=== PATIENT | male | born 1945 | race Caucasian/White ===

== ENCOUNTER 2016-05-24 10:54 | Inpatient (IN) | payer MEDICARE, MEDICAID ==
[~2016-05-24] VITALS: Ht 175.3 cm; Wt 84.7 kg
[~2016-05-24 10:54] MED LIST changes: -ACCUKIT; -ACET325T PO; -ALBUAER3 INH; -ALPR1TAB3 PO; -AMPI500C8 PO; -BLOOD GLUCOSE T1 TES; -CALG500 PO; -GETGO ROLLING W1 MI1; -GLYC2SUP RECTAL; -HYDR-3534 PO; -HYDR-3580 PO; -HYDR25TA5 PO; -HYDR2TAB PO; -INSU-91; -IPRA0.02 INH; -LABE100T2 PO; -LANTINJ SQ; -LANTUS2P SQ; -LIDO5DIS35 TD; -LISI-519 PO; -LISI10TA3 PO; -METO25TA3 PO; -NEBULIZER1 MI1; -OXYC1TAB35 PO; -POLY17S PO; -TIZA4TAB PO; -VITD400 PO; -ZINC40OI TOPICAL; -ZOFR4TAB PO; -[UNRECOGNIZED DRUG - OTHER]; -[UNRECOGNIZED DRUG - SUPPLY]
[2016-05-24] MEDS ORDERED: POLY17S PO (13:26)
[2016-05-24] MEDS ORDERED: ZOFR4TAB PO (13:26)
[2016-05-24] MEDS ORDERED: GLYC2SUP RECTAL (13:26)
[2016-05-24] MEDS ORDERED: HYDR25TA5 PO (13:26)
[2016-05-24] MEDS ORDERED: HYDR2TAB PO (13:26)
[2016-05-24] MEDS ORDERED: ACET325T PO (13:26)
[2016-05-25] MEDS ORDERED: NEBULIZER1 MI1 (10:16)
[2016-05-27] VITALS (12 sets, daily range): BP systolic 111–162; BP diastolic 53–91; PULSE 59–75; RESP 16–20; TEMP 96.3–98; O2SAT 92–99
[2016-05-27] MEDS: LACTATED RINGER'S 1000 ML IV SCH (06:45)
[2016-05-27] MEDS ORDERED: INSULIN HUMAN REGULAR 1,000 UNITS/10 ML VIAL SQ PRN (06:45)
[2016-05-27] MEDS: SODIUM CHLORID 0.9% 500 ML IV SCH ×2 (06:45→23:25)
[2016-05-27] MEDS ORDERED: METOPROLOL TARTRATE 25 MG TAB PO PRN (06:45)
--- NOTE | 2016-05-27 08:23 | HHI.HP ---
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 Presents to TEVAR. No back pain or chest pain. Past/Family/Social History Past Medical History HTN, CAD, CVOD, tobacco abuse Social History tobacco Home Medications Active Scripts Nebulizer 1 Mis Mis #1 EA .ROUTE DIRECTED Ref 0 Prov:Otto Mendez MD R2 05/25/16 Pravastatin (Pravachol)80 Mg Tab80 Mg PO DAILY #30 TAB Prov:Otto Mendez MD R2 05/22/16 Labetalol 200 Mg Evf522 Mg PO Q12HR #60 TAB Prov:Otto Mendez MD R2 05/22/16 Clopidogrel (Plavix)75 Mg Tab75 Mg PO DAILY 30 Days Prov:Otto Mendez MD R2 05/22/16 Citalopram (Celexa)20 Mg Tab20 Mg PO DAILY #30 TAB Ref 3 Prov:Otto Mendez MD R2 05/22/16 Alprazolam (Xanax)0.5 Mg Tab0.5 Mg PO Q12HR PRN (ANXIETY) #20 TAB Prov:Otto Mendez MD R2 05/22/16 Tiotropium Inh (Spiriva Handihaler)18 Mcg Cap1 Puff INH DAILY #30 CAP Ref 0 1 capsule = 18 mcg Prov:Otto Mendez MD R2 05/22/16 Zolpidem (Ambien)5 Mg Tab5 Mg PO HS PRN (insomnia) #20 TAB Prov:Otto Lin MD 05/15/16 Zinc Oxide (Topical) (Zinc Oxide)20 % Oin1 Applic TOPICAL BID 14 Days Prov:Otto Lin MD 05/15/16 Levothyroxine 25 Mcg Tab25 Mcg PO DAILY@06 30 Days Prov:Otto Lin MD 05/15/[address] (Aspirin EC)81 Mg Tabdr81 Mg PO DAILY 30 Days Prov:Otto Lin MD 05/15/16 Sennosides-Docusate Sodium (Senna Plus 8.6-50 mg)1 Tab Tab1 Tab PO BID #60 TAB Ref 1 Prov:Blessing Ag MD 05/02/16 Reported Medications Glycerin Adult Supp 2 Gm Supp2 Gm RECTAL DAILY PRN (CONSTIPATION) Ref 0 05/24/16 Ondansetron (Zofran)4 Mg Tab4 Mg PO Q6HR PRN (NAUSEA OR VOMITING) Ref 0 05/24/16 Hydromorphone 2 Mg Tab2 Mg PO Q4H PRN (PAIN) Ref 0 05/24/16 Polyethylene Glycol 3350 Powder 17 Gm Pow17 Gm PO DAILY #1 BOTTLE Ref 0 05/24/16 Hydrochlorothiazide 25 Mg Tab25 Mg PO DAILY #30 TAB Ref 0 05/24/16 Nitroglycerin SL (Nitrostat SL)0.4 Mg Subl0.4 Mg SL DIRECTED PRN (CHEST PAIN ) #100 TAB.SL Ref 0 1 tablet under the tongue as needed for chest pain. Repeat every 5 minutes for a total of 3 DOSES or call 911 if NO relief. 04/26/16 Discontinued Reported Medications Acetaminophen 325 Mg Usx673 Mg PO Q4H PRN (PAIN SCALE 1 TO 10) 05/24/16 Albuterol 8.5 GM Inh (Proair Hfa 8.5 GM Inh)90 Mcg/Act Aer2 Puff INH Q6H PRN ( SOB/WHEEZING) #1 INHALER Ref 0 108 mcg/actuation 04/26/16 Tiotropium Inh (Spiriva Handihaler)18 Mcg Cap1 Puff INH DAILY #30 CAP Ref 0 1 capsule = 18 mcg 04/26/16 Discontinued Scripts Hydrocodone-Acetaminophen 7.5-325 mg Tab1 Tab PO Q6H PRN (pain) #90 TAB Prov:Otto Mendez MD R2 05/23/16 Insulin Glargine Inj (Lantus Inj)1,000 Unit/10 Ml Vial10 Units SQ HS #2 VIAL Ref 3 Prov:Otto Mendez MD R2 05/22/16 Labetalol 100 Mg Ela483 Mg PO Q8HR PRN (SBP >130) #30 TAB Ref 1 Prov:Otto Mendez MD R2 05/22/16 Ipratropium Neb 0.5 Mg/2.5 Ml Amp0.5 Mg INH Q6HR NEB PRN (SHORTNESS OF BREATH) # 1 ML Ref 3 Prov:Otto Mendez MD R2 05/22/16 Lidocaine Patch 12 HR (Lidoderm Patch 12 HR)5% Patch1 Patch TD DAILY 30 Days Prov:Otto Lin MD 05/15/16 Walker Rolling/GetGo 1 Mis Mis #1 Ea .route As Directed Prov:Dethloff,Irene M. RESIDENT CARE ASSOCIATE 05/10/16 Hydrocodone-Acetaminophen 7.5-325 mg Tab1 Tab PO Q6H PRN (pain) #20 TAB Prov:Otto Mendez MD R2 05/22/16 Pravastatin (Pravachol)80 Mg Tab80 Mg PO DAILY 30 Days Prov:Otto Lin MD 05/15/16 Polyethylene Glycol 3350 Powder 17 Gm Pow17 Gm PO DAILY 10 Days Prov:Otto Lin MD 05/15/16 Labetalol 200 Mg Quh362 Mg PO Q12HR 30 Days Prov:Otto Lin MD 05/15/16 Hydrocodone-Acetaminophen 7.5-325 mg Tab1 Tab PO Q6H PRN (pain 6-8) #20 TAB Prov:Otto Lin MD 05/15/16 Clopidogrel (Plavix)75 Mg Tab75 Mg PO DAILY 30 Days Prov:Otto Lin MD 05/15/16 Citalopram (Celexa)20 Mg Tab20 Mg PO DAILY 30 Days Prov:Otto Lin MD 05/15/16 Alprazolam (Xanax)0.5 Mg Tab0.5 Mg PO Q12HR PRN (ANXIETY) #20 TAB Prov:Otto Lin MD 05/15/16 Magnesium Citrate (Sm Magnesium Citrate)1.745 Gm/30 Ml Duj554 Ml PO DAILY 30 Days Ref 1 Prov:Blessing Ag MD 05/02/16 Labetalol 100 Mg Zqs106 Mg PO Q8HR PRN (SBP >130) #30 TAB Ref 1 Prov:Blessing Ag MD 05/02/16 Ipratropium Neb 0.5 Mg/2.5 Ml Amp0.5 Mg INH Q6HR NEB PRN (SHORTNESS OF BREATH) 30 Days Ref 1 Prov:Blessing Ag MD 05/02/16 Coded Allergies: Tramadol (Verified Allergy, Unknown, Rash, 05/24/16) Review of Systems Constitutional: DENIES: Fever, Chills, Change in appetite Respiratory: COMPLAINS OF: Shortness of breath Cardiovascular: DENIES: Chest pain, Palpitations, Syncope, Dyspnea on Exertion , PND, Lower Extremity Edema, Orthopnea, Claudication Physical Exam Neuro: NAD, ARELLANO HEENT: NC/AT Neck: no JVD Heart: reg rate Lungs: non labored Abdomen: NT Assessment and Plan Plan TEVAR today I have discussed with the patient in clinic and his family the potential for spinal cord ischemia (paralysis) and stroke. Getting spinal drain today and in my opinion, the risks of the procedure are justified by the chance for SCI. To OR after IR spinal drain Jose Cruz MD May 27, 2016 08:23
[2016-05-27] MEDS ORDERED: LANTUS2P SQ (08:29)
[2016-05-27] MEDS ORDERED: HYDR-3534 PO (08:29)
[2016-05-27] MEDS ORDERED: AMPI500C8 PO (09:21)
[2016-05-27] MEDS ORDERED: IOHEXOL 300 MG/ML 50 ML BTL (for RAD DIAG) ONE (09:26)
[2016-05-27] MEDS ORDERED: ePHEDrine/NS 50 MG/5 ML SYR IV ONE (09:30)
[2016-05-27] MEDS ORDERED: PROPOFOL 200 MG/20 ML AMP IV ONE (09:30)
[2016-05-27] MEDS ORDERED: PHENYLEPH/NS 1000 MCG/10 ML SYR IV ONE (09:31)
[2016-05-27] MEDS ORDERED: NEOSTIGMINE 3 MG/3 ML SYR IV ONE (09:31)
[2016-05-27] MEDS ORDERED: ONDANSETRON HCL 4 MG/2 ML VIAL IV PUSH ONE (09:31)
[2016-05-27] MEDS ORDERED: LACTATED RINGER'S 1000 ML INJ 1,000 ML IV ONE (09:32)
[2016-05-27] MEDS ORDERED: SODIUM CHLORID 0.9% 500 ML INJ 500 ML IV ONE (09:32)
[2016-05-27] MEDS ORDERED: ceFAZolin 2 GM PREMIX 50 ML ONE ×2 (10:13→10:27)
[2016-05-27] MEDS ORDERED: MIDAZOLAM HCL 5 MG/5 ML VIAL ONE (10:14)
[2016-05-27] MEDS ORDERED: fentaNYL CITRATE 250 MCG/5 ML AMP ONE ×2 (10:14→13:38)
[2016-05-27] MEDS ORDERED: THROMBIN (TOPICAL) 5,000 UNIT VIAL ONE (10:26)
[2016-05-27] MEDS ORDERED: PROTAMINE SULFATE 50 MG/5 ML VIAL ONE (10:27)
[2016-05-27] MEDS ORDERED: HEPARIN SODIUM - IV 10,000 UNITS/10 ML VIAL ONE ×2 (10:27→12:33)
[2016-05-27] MEDS ORDERED: GELFOAM SIZE 100 ONE (10:27)
[2016-05-27] MEDS ORDERED: VANCOMYCIN HCL 1000 MG VIAL ONE (10:27)
[2016-05-27] MEDS ORDERED: HEPARIN SODIUM - SQ 10,000 UNITS/ML VIAL ONE (10:27)
[2016-05-27] MEDS ORDERED: SODIUM CHLOR 0.9% 250 ML INJ 250 ML ONE (10:27)
--- NOTE | 2016-05-27 11:03 | PD.RAD ---
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 Lumbar drain placement to reduce risk of cord infarct was requested prior to placement of a thoracic aortic endograft. Lumbar drain placed without difficulty. Clear CSF draining for the tube. Catheter tip directed itself inferiorly and is a the S1 level. See PACS Report for procedural detail/treatment Sean Joseph MD May 27, 2016 11:03
[2016-05-27] MEDS ORDERED: IOHEXOL 300 MG/ML 100 ML BTL (for Rad CT) OTHER ONE (11:18)
[2016-05-27] MEDS ORDERED: DO NOT ADM ANY ANTICOAGULANT DRUGS XX PRN (13:13)
--- NOTE | 2016-05-27 13:19 | HHI.PR ---
Immediate Post Op Note Procedure Date: May 27, 2016 Pre Op Diagnosis: thoracic penetrating aortic ulcer Post Op Diagnosis: thoracic penetrating aortic ulcer Surgeon: Jose Cruz [id number] Operator(s): Taran Bueno Procedure: TEVAR IVUS L CHEMISTRY FACULTY MEMBER Perclose R CHEMISTRY FACULTY MEMBER Angioseal Findings: successful exclusion of thoracic pathology + signals B LE at conclusion of case Complications: none apparent Specimen(s) removed: none Estimated blood loss: 75mL Anesthesia: General Drains: Other (spinal drain) Fluids: 1800 mL x'oid; 500 mL UOP IVF Patient to: Other Patient Condition: Good Implant/Devices: SEE IMPLANT LOG (if applicable) Date/Time of Procedure: SEE SURGICAL CARE RECORD Jose Cruz MD May 27, 2016 13:19
[2016-05-27] MEDS ORDERED: POTASSIUM CHLOR 20 MEQ PREMIX 100 ML IV PRN ×3 (13:30→21:30)
[2016-05-27] MEDS ORDERED: SODIUM CHLORIDE 0.9% FLUSH 5 ML FLUSH IV FLUSH PRN (13:30)
[2016-05-27] MEDS ORDERED: POTASSIUM PHOSPHATE INJ 21 MMOL in SODIUM CHLOR 0.9% 250 ML INJ 250 ML IV PRN (13:30)
[2016-05-27] MEDS ORDERED: Post-op Orders (for Pharmacy) MISC OTHER ONE (13:30)
[2016-05-27] MEDS ORDERED: MAGNESIUM SULFATE 1 GM PREMIX 200 ML IV PRN (13:30)
[2016-05-27] MEDS: LACTATED RINGER'S 1000 ML INJ 500 ML IV SCH ×3 (14:15→23:19)
[2016-05-27] MEDS: HYDROmorphone HCL PF 1 MG/ML VIAL IV PRN ×2 (16:21→20:33)
--- NOTE | 2016-05-27 18:47 | RADRPT ---
EXAM DATE/TIME: 05/27/2016 10:16 [facility] COMPARISON: No previous studies available for comparison. INDICATIONS : Patient needs lumbar drain pre-op for spinal infarct. MEDICAL HISTORY : HTN CAD CVOD Tobacco use SURGIAL HISTORY : None ENCOUNTER: Initial ACUITY: 1 day PAIN SCORE: 0/10 LUMBAR PUNCTURE TIME: 1035 hours FLUORO TIME: 9.0 minutes LEVEL: Tip of lumbar drain was placed at L5 MEDICATION(S): 1.) 3 mg midazolam (Versed) IV 2.) 200 mcg fentanyl (Sublimaze) IV Prophylactic antibiotics were administered with appropriate pre-procedure timing. DEVICE(S): 1.) 5 Portuguese lumbar drain catheter PROCEDURE : 1. Fluoroscopically guided lumbar drain placement. 2. Conscious sedation with continuous EKG and oximetry monitoring. We're asked to place a lumbar drain prior to endograft placement across a pseudoaneurysm within the t horacic aorta. The risks, benefits and alternatives to the procedure were explained and verbal and wr itten consent was obtained. The site was prepped in sterile fashion. Full sterile technique was use d, including cap, mask, sterile gloves and gown and a large sterile sheet. Hand hygiene and 2% chlor hexidine and/or betadine/alcohol prep was utilized per protocol for cutaneous antisepsis. The skin a nd subcutaneous tissues were infiltrated with local anesthetic solution. With fluoroscopic guidance the lumbar thecal sac was punctured with a 14 gauge Touhy needle and a lum bar drain was placed. The catheter and directed itself inferiorly so it was threaded down to the leve l of L5/S1.. CSF was identified returning from the catheter at the termination of the procedure. Conscious sedation was performed with the prescribed dosages and duration as above. The patient tole rated the procedure well and there were no complications. EKG and oximetry remained stable throughou t the procedure. The patient was sent to post anesthesia recovery in stable condition. CONCLUSION: Uncomplicated lumbar drain placement as above. Sean Joseph MD on May 27, 2016 at 18:44 Board Certified Radiologist. This report was verified electronically.
[2016-05-27] MEDS: SODIUM CHLORIDE 0.9% FLUSH 5 ML FLUSH IV FLUSH SCH (20:32)
[2016-05-27] MEDS: ATORVASTATIN 40 MG TAB PO SCH (20:32)
[2016-05-27] MEDS: RANITIDINE HCL SYRUP 150 MG/10 ML UDC PO SCH (20:32)
--- NOTE | 2016-05-27 21:16 | PD.CONS ---
HPI Service Critical Care Medicine Consult Requested By Dr. Cruz Reason for Consult hemodynamic management post thoracic aneurysm repair Primary Care Physician Otto Mendez MD History of Present Illness This is a 71yM who was admitted back in april for back pain and was found at that time to have an unstable plaque of the decending aorta. He was medically managed at this time and now represents for elective TEVAR for definitive management of his unstable aortic plaque/aneurysm. He underwent prophylactic pre-operative lumbar drain placement with interventional radiology. He had an uncomplicated intra-operative course. He arrives to the CVICU mildly somnolent post-anesthesia, extubated. Critical care medicine has been consulted to assist with hemodynamic monitoring post thoracic aortic stenting. Review of Systems ROS Limitations: Clinical Condition ROS recently extubated from general anesthesia. Past Family Social History Allergies: Coded Allergies: Tramadol (Verified Allergy, Unknown, Rash, 05/24/16) Past Medical History DM II - Insulin dependent HTN Hyperlipidemia CAD s/p IA - 2011 h/o CVA - 2013 Hypothyroidism DEAN Lumbago Anxiety Past Surgical History Right CEA - 2012 10+ surgeries on right arm for hand reconstruction Right knee surgery - Reported Medications Hydrochlorothiazide 25 Mg Tab 25 Mg PO DAILY Lortab (Hydrocodone-Acetaminophen) 7.5-325 Mg Tab 1 Tab PO Q8HR PRN Pravastatin 80 Mg Tab 80 Mg PO DAILY Lisinopril 40 Mg Tab 40 Mg PO DAILY Alprazolam 1 Mg Tab 1 Mg PO Q8H PRN Clopidogrel (Clopidogrel Bisulfate) 75 Mg Tab 75 Mg PO DAILY Clonidine (Clonidine HCl) 0.1 Mg Tab 0.1 Mg PO TID PRN Metoprolol Tartrate 50 mg (Metoprolol Tartrate) 50 Mg Tab 50 Mg PO BID Levothyroxine Sodium 25 Mcg Tab 1 Tab PO DAILY Humalog [id number] Mg/Ml 100 Units/Ml Inj 1-9 Units SQ ACHS SLIDING SCALE <150 - 0 units. 150-199 - 1 unit. 200-249 - 3 units. 250-299 - 5 units. 300-349 - 7 units. >349 - 9 units. Lantus (Insulin Glargine) 100 Units/Ml Inj 30 Unit SC HS Proair Hfa (Albuterol Sulfate) 8.5 Gm Aero 2 Puff INH Q6 PRN Spiriva Handihaler (Tiotropium [place]) 18 Mcg Cap 1 Puff INH DAILY Active Ordered Medications See FROY Family History Father - from MVA Mother - unknown cancer age 65 Brother - [place] age 30 Brother - throat cancer, hepatitis, in 30's Brother - healthy 3 Children - healthy Social History Lives in [place] alone EtOH - denies Tobacco - 1 PPD for 50+ years, h/o 2 PPD Illicit Drugs - none Physical Exam Vital Signs Vital Signs Date Time Temp Pulse Resp B/P Pulse Ox O2 Delivery O2 Flow Rate FiO2 05/27/16 20:02 99 Nasal Cannula 4.00 05/27/16 18:00 63 05/27/16 17:00 68 18 135/58 95 05/27/16 17:00 68 05/27/16 16:00 63 05/27/16 16:00 61 156/63 94 05/27/16 15:00 59 160/64 99 05/27/16 14:30 60 162/67 99 05/27/16 14:00 63 151/65 95 05/27/16 13:45 63 157/63 92 05/27/16 13:30 62 152/63 92 Automatic Cuff 05/27/16 13:15 89 Nasal Cannula 4.00 05/27/16 13:15 96.3 67 17 149/69 94 05/27/16 08:30 97.9 73 20 111/53 96 Physical Exam gen: somnolent but arousable. post-anesthesia. heent: pupils equal, reactive. mucous membranes moist. neck: no jvd. andrews. trachea midline chest: distant breath sounds. no wheezing. cv: normal rate, regular rhythm. abd: soft, nontender, nondistended. no guarding. extr: groin site without evidence of hematoma. right radial art line. distal pulses 2+ at radial and dp. lumbar drain exits midline back without evidence of hematoma or drainage. clear CSF in drain. neuro: RASS -2, weakly follows commands, still arousing from general anesthesia. grossly neuro intact. CRISTINE 5/5 in b/l LEs. sensation of LEs intact grossly. Laboratory Laboratory Tests Test 05/27/16 07:53 Blood Type A POSITIVE Antibody Screen NEGATIVE Assessment and Plan Assessment and Plan Assessment: 71yM now POD 0 s/p TEVAR for aortic plaque. will need close monitoring in the setting of new aortic stent and high concern for anterior column ischemia. Plan by systems: Neurologic: Acute postoperative pain High risk for anterior column ischemia Tylenol, oxycodone, Dilaudid as needed for pain Continue lumbar drain at 10 cm water above right atrium. --clamp drain if more than 20cc of CSF/hr. --q1h neurovascular checks. Respiratory: Postoperative atelectasis Wean FiO2 for goal SPO2 greater than 92% Incentive spirometer to bedside Cardiovascular: Status post TEVAR -- goal SBP 140 - 160. -- may require ivf or low-dose vasopressors for goal sbp. -- telemetry Renal: Sood with every hour urine outputs Goal urine output greater than 30 cc an hour -- Strict I/Os FEN/GI: Acute protein calorie malnutritionmild As he awakens from anesthesia we will slowly advance his diet. Plan for heart healthy diet the morning ICU electrolyte protocol May require gentle fluid hydration overnight Heme/ID: CBC in the morning No infectious etiology suspected this time Perioperative antibiotics per surgeon Endocrine: Hyperglycemia of critical illness -- SSI, medium scale, every 6 hours Prophylaxis: GI Prophylaxis Protonix 40 mg IV every 12 hours DVT Prophylaxis -- SCDs, subcutaneous heparin Lines: Peripheral IVs Art line 05/27 Lumbar drain 05/27 Dispo: Admit to the CVICU. He remains critically ill with high risk for anterior cord ischemia This patient remains critically ill with one or more organ systems which are or may become a threat to life. I have spent in excess of 45 minutes discontinuously in the care and management of this patient. This time is exclusive of procedures, and includes, but is not limited to, evaluation of the patient, review of the medical record, discussions with family, consultants, nursing staff, or respiratory therapy, and documentation in the medical record. Code Status Full Code Brown Ch MD May 27, 2016 21:16
[2016-05-27] MEDS ORDERED: POTASSIUM CHLOR 40 MEQ PREMIX 100 ML IV PRN ×2 (21:30)
[2016-05-27] MEDS ORDERED: MAGNESIUM OXIDE 400 MG TAB PO PRN (21:30)
[2016-05-27] MEDS ORDERED: MAGNESIUM SULFATE INJ 2 GM in SODIUM CHLORIDE 0.9% INJ 96 ML IV PRN (21:30)
[2016-05-27] MEDS ORDERED: MAGNESIUM SULFATE INJ 4 GM in SODIUM CHLORIDE 0.9% INJ 92 ML IV PRN (21:30)
[2016-05-27] MEDS ORDERED: POTASSIUM CL 40 MEQ/30 ML LIQ UDC PO/TUBE PRN ×2 (21:30)
[2016-05-27] MEDS ORDERED: POTASSIUM PHOSPHATE INJ 30 MMOL in SODIUM CHLOR 0.9% 250 ML INJ 250 ML IV PRN (21:30)
[2016-05-27] MEDS ORDERED: SODIUM PHOSPHATE INJ 30 MMOL in SODIUM CHLOR 0.9% 250 ML INJ 240 ML IV PRN (21:30)
[2016-05-27] MEDS ORDERED: POTASSIUM PHOSPHATE MONOBASIC 500 MG TAB PO/TUBE PRN (21:30)
[2016-05-27] MEDS ORDERED: DEXTROSE 50% IN WATER 50 ML VIAL(D50) IV PUSH PRN (21:30)
[2016-05-27] MEDS ORDERED: POTASSIUM PHOSPHATE MONOBASIC 500 MG TAB PO PRN (21:30)
[2016-05-28] VITALS (10 sets, daily range): BP systolic 129–164; BP diastolic 58–83; PULSE 20–93; RESP 16–20; TEMP 98.8–99.8; O2SAT 92–98
[2016-05-28] MEDS: HYDROmorphone HCL PF 1 MG/ML VIAL IV PRN ×4 (00:22→10:52)
[2016-05-28] MEDS: LACTATED RINGER'S 1000 ML INJ 500 ML IV SCH ×3 (04:19→14:19)
[2016-05-28 05:36] LABS: REVIEW FLAG FINAL
[2016-05-28] MEDS: ACETAMINOPHEN 325 MG TAB PO SCH ×4 (06:00→18:05)
[2016-05-28] MEDS: INSULIN NovoLIN REGULAR SUPPLEMENTAL SCALE SQ SCH ×4 (06:00→18:13)
[2016-05-28] MEDS: LACTATED RINGER'S 1000 ML IV SCH (06:45)
[2016-05-28 06:46] LABS: BICARBONATE 23.7 MEQ/L (21.0-32.0); MAGNESIUM 2.4 MG/DL (1.5-2.5)
[2016-05-28 06:57] LABS: POTASSIUM 5.4 MEQ/L (3.5-5.1)
--- NOTE | 2016-05-28 07:00 | RADRPT ---
EXAM DATE/TIME: 05/28/2016 06:13 [facility] COMPARISON: CHEST PA & LAT, May 09, 2016, 14:17. CHEST SINGLE AP, April 30, 2016, 5:06. INDICATIONS : Short of breath. MEDICAL HISTORY : None. SURGICAL HISTORY : Right carotid artery. ENCOUNTER: Subsequent ACUITY: 2 days PAIN SCORE: Non-responsive. LOCATION: Bilateral chest FINDINGS: The previously noted bilateral pulmonary infiltrates have almost completely resolved on today's exami nation. No definite new infiltrates are demonstrated. No pleural effusions are demonstrated. The hear t size is stable. There is a vascular stent in the thoracic aorta on today's examination. No evidence of pneumothorax. CONCLUSION: The previously noted bilateral pulmonary infiltrates have almost completely resolved when compared to the prior studies.. Paras Hyde MD on May 28, 2016 at 6:56 Board Certified Radiologist. This report was verified electronically.
--- NOTE | 2016-05-28 07:13 | PD.VS.PN ---
Subjective POD #: 1 Procedure(s): TEVAR for ESAU Subjective/Hospital Course doing well overnight, c/o back pain at site of pre-existing sacral wound Objective Neuro: intact, 5/5 LE strength Pulmonary: unlabored; good sats on supplemental O2. CXR clear Cardiac: reg rate, bp appropriately elevated for spinal cord protection, no pressors palpable pedal pulses FEN/GI: jodi liq : cr 0.9 ID Antibiotics(date/duration): none ID Cultures: wound culture from decub noted Heme: Hct 29 Drains: spinal drain in place, sl blood tinged Laboratory Laboratory Tests Test 05/27/16 05/28/16 07:53 05:10 Blood Type A POSITIVE Antibody Screen NEGATIVE Hemoglobin 9.6 Hematocrit 29.0 Sodium Level 137 Potassium Level 5.4 Chloride Level 104 Carbon Dioxide Level 23.7 Anion Gap 9 Blood Urea Nitrogen 23 Creatinine 0.94 Estimat Glomerular Filtration 80 Rate Random Glucose 105 Calcium Level 8.3 Phosphorus Level 2.7 Magnesium Level 2.4 Imaging Last 48 hours Impressions Chest X-Ray 05/28/16 0000 Signed Impressions: Service Date/Time: Saturday, May 28, 2016 06:13 - CONCLUSION: The previously noted bilateral pulmonary infiltrates have almost completely resolved when compared to the prior studies.. Paras Hyde MD Lumbar Puncture Fluoroscopy 05/27/16 0000 Signed Impressions: Service Date/Time: Friday, May 27, 2016 10:16 - CONCLUSION: Uncomplicated lumbar drain placement as above. Sean Joseph MD Assessment and Plan Plan Neuro intact after TEVAR 1. clamp spinal drain; continue to hold heparin and ASA. has SCDs for VTE protection. Continue neuro checks q1h. Anticipate d/c drain tomorrow if neuro intact. Continue permissive HTN and will continue to hold anti-hypertensives 2. Ok to have diet 3. Cardiac diet Jose Cruz MD May 28, 2016 07:13
[2016-05-28] MEDS: RANITIDINE HCL SYRUP 150 MG/10 ML UDC PO SCH ×2 (08:11→20:20)
[2016-05-28] MEDS: SODIUM CHLORIDE 0.9% FLUSH 5 ML FLUSH IV FLUSH SCH ×2 (08:16→20:20)
[2016-05-28] MEDS: ASPIRIN EC 81 MG TABEC PO SCH (09:32)
[2016-05-28] MEDS: HEPARIN SODIUM - SQ 10,000 UNITS/ML VIAL SQ SCH ×2 (09:33→20:21)
--- NOTE | 2016-05-28 13:32 | HHI.CCPN ---
Subjective Remarks/Hospital Course Hospital Course: This is a 71yM who was admitted back in april for back pain and was found at that time to have an unstable plaque of the decending aorta. He was medically managed at this time and now represents for elective TEVAR for definitive management of his unstable aortic plaque/aneurysm. He underwent prophylactic pre-operative lumbar drain placement with interventional radiology. He had an uncomplicated intra-operative course. He arrives to the CVICU mildly somnolent post-anesthesia, extubated. Critical care medicine has been consulted to assist with hemodynamic monitoring post thoracic aortic stenting. Subjective: 05/28: doing well. uop adequate. drain patent and still at 10cm overnight. clamped this AM at 0900. SBP still in 140-160 range without additional support. tolerating diet. Objective Vital Signs Date Time Temp Pulse Resp B/P Pulse Ox O2 Delivery O2 Flow Rate FiO2 05/28/16 11:00 93 05/28/16 11:00 95 Nasal Cannula 4.00 05/28/16 11:00 99.6 20 129/83 163/70 05/28/16 03:48 35 Intake and Output 05/27/16 05/27/16 05/28/16 08:00 16:00 00:00 Intake Total 823 ml Output Total 383 ml Balance 440 ml Result Diagram: 05/28/16 0510 05/28/16 0510 Objective Remarks gen: awake and alert, flat in bed. heent: pupils equal, reactive. mucous membranes moist. neck: no jvd. andrews. trachea midline chest: distant breath sounds. no wheezing. cv: normal rate, regular rhythm. abd: soft, nontender, nondistended. no guarding. extr: groin site without evidence of hematoma. right radial art line. distal pulses 2+ at radial and dp. lumbar drain exits midline back with very small amount of red blood under dressing but no hematoma or induration. clear CSF in drain. neuro: RASS 0, follows commands x 4. CRISTINE 5/5 in b/l LEs. sensation of LEs intact grossly. A/P Assessment and Plan Assessment: 71yM now POD 1 s/p TEVAR for aortic plaque. will need close monitoring in the setting of new aortic stent and high concern for anterior column ischemia. Plan to clamp drain today. continue SBP goals 140 - 160 x 24h. Plan by systems: Neurologic: Acute postoperative pain High risk for anterior column ischemia Tylenol, oxycodone, Dilaudid as needed for pain lumbar drain clamped at 0900 05/27. --q1h neurovascular checks. Respiratory: Postoperative atelectasis Wean FiO2 for goal SPO2 greater than 92% Incentive spirometer to bedside Cardiovascular: Status post TEVAR -- goal SBP 140 - 160. -- may require ivf or low-dose vasopressors for goal sbp. -- telemetry Renal: Sood with every hour urine outputs Goal urine output greater than 30 cc an hour -- Strict I/Os FEN/GI: Acute protein calorie malnutritionmild heart healthy diet as tolerated. ICU electrolyte protocol Heme/ID: CBC daily No infectious etiology suspected this time Endocrine: Hyperglycemia of critical illness -- SSI, medium scale, every 6 hours Prophylaxis: GI Prophylaxis Protonix 40 mg IV every 12 hours DVT Prophylaxis -- SCDs, subcutaneous heparin q12h. hold AM dose of SQH for probable drain removal. Lines: Peripheral IVs Art line 05/27 Lumbar drain 05/27 Dispo: remain in the CVICU. Brown Ch MD May 28, 2016 13:32
[2016-05-28] MEDS: ATORVASTATIN 40 MG TAB PO SCH (20:20)
[2016-05-29] VITALS (11 sets, daily range): BP systolic 115–168; BP diastolic 50–79; PULSE 82–92; RESP 18–22; TEMP 98–98.9; O2SAT 95–99
[2016-05-29] MEDS ORDERED: LABETALOL HCL 100 MG/20 ML VIAL ONE (04:57)
[2016-05-29] MEDS ORDERED: LABETALOL HCL 100 MG/20 ML VIAL IV PRN ×2 (05:15→07:15)
[2016-05-29 05:25] LABS: HEMATOCRIT 29.3 % (39.0-51.0); MEAN CELL VOLUME 86.5 FL (80.0-100.0); MEAN CORPUSCULAR HGB CONC 33.6 % (32.0-36.0); PLATELET COUNT 222 TH/MM3 (150-450); RED BLOOD COUNT 3.38 MIL/MM3 (4.50-5.90); RED CELL DISTRIBUTION WIDTH 14.3 % (11.6-17.2); REVIEW FLAG FINAL; WHITE BLOOD COUNT 15.4 TH/MM3 (4.0-11.0)
[2016-05-29 05:52] LABS: BICARBONATE 26.1 MEQ/L (21.0-32.0); POTASSIUM 4.2 MEQ/L (3.5-5.1)
[2016-05-29] MEDS: ACETAMINOPHEN 325 MG TAB PO SCH ×2 (06:00)
[2016-05-29] MEDS: INSULIN NovoLIN REGULAR SUPPLEMENTAL SCALE SQ SCH ×4 (06:00→17:12)
[2016-05-29] MEDS: LACTATED RINGER'S 1000 ML IV SCH (06:45)
--- NOTE | 2016-05-29 07:40 | PD.VS.PN ---
Subjective POD #: 2 Procedure(s): TEVAR for ESAU Subjective/Hospital Course doing well overnight, c/o less back pain at site of pre-existing sacral wound Neuro intact after drain clamped yesterday Objective Neuro: ARELLANO, alert and responsive Pulmonary: nonlabored breathing Cardiac: reg rate ID Antibiotics(date/duration): none Laboratory Laboratory Tests Test 05/29/16 04:20 White Blood Count 15.4 Red Blood Count 3.38 Hemoglobin 9.8 Hematocrit 29.3 Mean Corpuscular Volume 86.5 Mean Corpuscular Hemoglobin 29.0 Mean Corpuscular Hemoglobin 33.6 Concent Red Cell Distribution Width 14.3 Platelet Count 222 Mean Platelet Volume 9.0 Sodium Level 137 Potassium Level 4.2 Chloride Level 104 Carbon Dioxide Level 26.1 Anion Gap 7 Blood Urea Nitrogen 18 Creatinine 0.83 Estimat Glomerular Filtration 92 Rate Random Glucose 139 Calcium Level 8.7 Imaging Last 48 hours Impressions Chest X-Ray 05/28/16 0000 Signed Impressions: Service Date/Time: Saturday, May 28, 2016 06:13 - CONCLUSION: The previously noted bilateral pulmonary infiltrates have almost completely resolved when compared to the prior studies.. Paras Hyde MD Assessment and Plan Plan Neuro intact after TEVAR 1. d/c spinal drain today then resume BP meds for goal SBP 120-140. Will resume ASA, sq heparin after drain out 2. OOB and PT 2h after drain out 3. Anticipate transfer to floor tomorrow (POD#3) Discharge Planning likely needs rehab. If neuro intact, can d/c POD#3 (tomorrow) Jose Cruz MD May 29, 2016 07:40
--- NOTE | 2016-05-29 07:54 | HHI.CCPN ---
Subjective Remarks/Hospital Course Hospital Course: This is a 71yM who was admitted back in april for back pain and was found at that time to have an unstable plaque of the decending aorta. He was medically managed at this time and now represents for elective TEVAR for definitive management of his unstable aortic plaque/aneurysm. He underwent prophylactic pre-operative lumbar drain placement with interventional radiology. He had an uncomplicated intra-operative course. He arrives to the CVICU mildly somnolent post-anesthesia, extubated. Critical care medicine has been consulted to assist with hemodynamic monitoring post thoracic aortic stenting. Subjective: 05/28: doing well. uop adequate. drain patent and still at 10cm overnight. clamped this AM at 0900. SBP still in 140-160 range without additional support. tolerating diet. 05/29: doing well. no complaints. uop adequate. neuro intact. drain calmped x 24h. Objective Vital Signs Date Time Temp Pulse Resp B/P Pulse Ox O2 Delivery O2 Flow Rate FiO2 05/29/16 07:29 95 Nasal Cannula 2.00 05/29/16 07:00 89 05/29/16 04:00 98.9 22 168/79 05/28/16 03:48 35 Intake and Output 05/28/16 05/28/16 05/29/16 08:00 16:00 00:00 Intake Total 240 ml 1000 ml Output Total 1069 ml 722 ml Balance -829 ml 278 ml Result Diagram: 05/29/1641905/29/16419 Objective Remarks gen: awake and alert, flat in bed. heent: pupils equal, reactive. mucous membranes moist. neck: no jvd. andrews. trachea midline chest: distant breath sounds. no wheezing. cv: normal rate, regular rhythm. abd: soft, nontender, nondistended. no guarding. extr: groin site without evidence of hematoma. right radial art line. distal pulses 2+ at radial and dp. lumbar drain exits midline back with very small amount of red blood under dressing but no hematoma or induration. neuro: RASS 0, follows commands x 4. CRISTINE 5/5 in b/l LEs. sensation of LEs intact grossly. A/P Assessment and Plan Assessment: 71yM now POD 1 s/p TEVAR for aortic plaque. will discontinue drain today and drop SBP goals to 120 - 140. If he remains stable, will de-line and transfer to floor in AM. will restart home meds. Plan by systems: Neurologic: Acute postoperative pain High risk for anterior column ischemia Depression Tylenol, oxycodone, Dilaudid as needed for pain lumbar drain clamped at 0900 05/27. plan to remove today. --q1h neurovascular checks. -- restart celexa Respiratory: Postoperative atelectasis Wean FiO2 for goal SPO2 greater than 92% Incentive spirometer to bedside -- PT/OT. OOB after drain removed (flat x 2 hrs after drain). Cardiovascular: Status post TEVAR -- goal SBP 140 - 160. will wean this to 120 - 140 after drain removal. -- Labetalol 10mg iv q1h prn for goal. Will restart home labetalol later this afternoon if needed. -- telemetry -- ASA -- restart statin Renal: d/c cedeño. -- Strict I/Os FEN/GI: Acute protein calorie malnutritionmild heart healthy diet as tolerated. ICU electrolyte protocol Heme/ID: Sacral decubitus ulcer (chronic from home) CBC daily home wound care recommended systemic antibiotics for his small sacral wound, though to my exam the site is clean and dry without evidence of cellulitis or systemic infection. Agree with zinc oxide and this is ordered topically. will hold on systemic antibiotics at this time. Endocrine: Hyperglycemia of critical illness -- SSI, medium scale, every 6 hours Prophylaxis: GI Prophylaxis zantac DVT Prophylaxis -- SCDs, subcutaneous heparin q12h. hold AM dose of SQH for drain removal. Lines: Peripheral IVs Art line 05/27- will d/c later today. Lumbar drain 05/27- will d/c after 9am. Dispo: remain in the CVICU. will plan to d/c out of ICU tomorrow. Brown Ch MD May 29, 2016 07:54
[2016-05-29] MEDS: HEPARIN SODIUM - SQ 10,000 UNITS/ML VIAL SQ SCH ×2 (08:14→21:08)
[2016-05-29] MEDS: RANITIDINE HCL SYRUP 150 MG/10 ML UDC PO SCH (08:31)
[2016-05-29] MEDS: PRAVASTATIN SOD 80 MG TAB PO SCH (08:31)
[2016-05-29] MEDS: TIOTROPIUM BROMIDE 18 MCG INH INH SCH ×2 (09:00→11:06)
[2016-05-29] MEDS: SODIUM CHLORIDE 0.9% FLUSH 5 ML FLUSH IV FLUSH SCH ×2 (11:06→21:09)
[2016-05-29] MEDS: ASPIRIN EC 81 MG TABEC PO SCH (11:07)
[2016-05-29] MEDS: CITALOPRAM HYDROBROMIDE 20 MG TAB PO SCH (11:07)
[2016-05-29] MEDS: ACETAMINOPHEN/HYDROcodone 325 MG/7.5 MG TAB PO PRN ×3 (13:13→21:08)
[2016-05-29] MEDS: ATORVASTATIN 40 MG TAB PO SCH (21:07)
[2016-05-29] MEDS: FAMOTIDINE 20 MG TAB PO SCH (21:08)
[2016-05-30] VITALS (27 sets, daily range): BP systolic 130–143; BP diastolic 58–76; PULSE 73–86; RESP 16–20; TEMP 98–98.8; O2SAT 93–98
[2016-05-30] MEDS: INSULIN NovoLIN REGULAR SUPPLEMENTAL SCALE SQ SCH ×5 (00:20→21:00)
[2016-05-30] MEDS: ACETAMINOPHEN/HYDROcodone 325 MG/7.5 MG TAB PO PRN ×5 (03:10→20:19)
[2016-05-30] MEDS ORDERED: LEVOTHYROXINE SODIUM 25 MCG TAB PO SCH (06:00)
[2016-05-30] MEDS: LACTATED RINGER'S 1000 ML IV SCH (06:45)
[2016-05-30] MEDS ORDERED: SODIUM CHLORIDE 0.9% FLUSH 5 ML FLUSH IV FLUSH PRN (07:45)
[2016-05-30] MEDS ORDERED: MISCELLANEOUS NURSING INFORMATION XX SCH (07:45)
[2016-05-30] MEDS ORDERED: CHLORHEXIDINE GLUCONATE 2 % 1 PACK (2 CLOTHS) TOP PRN (07:45)
[2016-05-30] MEDS ORDERED: RESP: ALBUTEROL 2.5 MG/IPRATROPIUM 0.5 MG NEB (PRN) INH (07:45)
[2016-05-30] MEDS ORDERED: ALBUTEROL SULFATE 90 MCG/ACT HFA 8 GM INHALER INH PRN (07:45)
[2016-05-30] MEDS ORDERED: ONDANSETRON HCL 4 MG/2 ML VIAL IV PRN (07:45)
--- NOTE | 2016-05-30 08:00 | HHI.CCPN ---
Subjective Remarks/Hospital Course This is a 71yM who was admitted back in april for back pain and was found at that time to have an unstable plaque of the decending aorta. He was medically managed at this time and now represents for elective TEVAR for definitive management of his unstable aortic plaque/aneurysm. He underwent prophylactic pre-operative lumbar drain placement with interventional radiology. He had an uncomplicated intra-operative course. He arrives to the CVICU mildly somnolent post-anesthesia, extubated. Critical care medicine has been consulted to assist with hemodynamic monitoring post thoracic aortic stenting. 05/28: doing well. uop adequate. drain patent and still at 10cm overnight. clamped this AM at 0900. SBP still in 140-160 range without additional support. tolerating diet. 05/29: doing well. no complaints. uop adequate. neuro intact. drain clamped x 24h. Subjective: 05/30: Afebrile. No new complaints overnight. No bleeding noted. Tolerating diet. No bowel movement. Objective Vital Signs Date Time Temp Pulse Resp B/P Pulse Ox O2 Delivery O2 Flow Rate FiO2 05/30/16 07:41 96 Nasal Cannula 2.00 05/30/16 07:35 143/76 05/30/16 07:00 78 05/30/16 04:12 20 05/30/16 03:15 98.5 05/28/16 03:48 35 Intake and Output 05/29/16 05/29/16 05/30/16 08:00 16:00 00:00 Intake Total 240 ml 840 ml Output Total 810 ml 775 ml Balance -570 ml 65 ml Result Diagram: 05/29/16 0420 05/29/16 0420 Imaging Last Impressions Chest X-Ray 05/28/16 0000 Signed Impressions: Service Date/Time: Saturday, May 28, 2016 06:13 - CONCLUSION: The previously noted bilateral pulmonary infiltrates have almost completely resolved when compared to the prior studies.. Paras Hyde MD Lumbar Puncture Fluoroscopy 05/27/16 0000 Signed Impressions: Service Date/Time: Friday, May 27, 2016 10:16 - CONCLUSION: Uncomplicated lumbar drain placement as above. Sean Joseph MD Objective Remarks GENERAL: 71-year-old male, appears stated age currently lying in bed in no acute distress SKIN: Warm and dry. HEAD: Atraumatic. Normocephalic. EYES: Pupils equal and round. No scleral icterus. No injection or drainage. ENT: No nasal bleeding or discharge. Mucous membranes pink and moist. NECK: Trachea midline. No JVD. CARDIOVASCULAR: Regular rate and rhythm. S1, S2. No S4. RESPIRATORY: No accessory muscle use. Clear to auscultation. Breath sounds equal bilaterally. GASTROINTESTINAL: Abdomen soft, non-tender, nondistended. Hepatic and splenic margins not palpable. MUSCULOSKELETAL: Stage II sacral decubitus ulcer. NEUROLOGICAL: Awake and alert. No obvious cranial nerve deficits. Motor grossly within normal limits. Strength is equal symmetric bilaterally. Normal sensation bilateral lower extremities A/P Assessment and Plan Neuro/Psych Acute postoperative pain High risk for anterior column ischemia Depression/anxiety History of insomnia Chronic narcotic use History of CVA Bilateral cataracts Tylenol for fever/, oxycodone, Dilaudid as needed for pain At home on Lortab/Dilaudid as needed for pain medication lumbar drain clamped at 0900 05/27. Removed 05/29 --q1h neurovascular checks. --Continue Celexa 20 mEq by mouth daily/home medication -- Holding Xanax 0.5 mg by mouth twice a day as needed for anxiety and Ambien 5 mg by mouth at night as needed for insomnia. Resume when clinically indicated Respiratory: Postoperative atelectasis History of COPD Ongoing tobaccoism Currently on nasal cannula 3 L to maintain saturations greater than or equal to 92% Incentive spirometer to bedside -- Continue Spiriva 18 mg inhalation daily -- As needed ProAir HFA 2 puffs every 6 hours as needed/home medication -- Tobacco cessation encouraged Cardiovascular: Postop day #3 TEVAR Coronary disease status post [place] 2011 History of right CEA Hypertension Dyslipidemia -- goal SBP 120 - 140 after drain removal. -- Labetalol 10mg iv q1h prn for goal. At home on labetalol 200 mg by mouth twice a day. Starting 100 mg by mouth twice a day today -- At home on Pravachol 40 mg by mouth daily for dyslipidemia. -- telemetry -- ASA 81 mg daily resumed Renal: -- Strict I/Os Follow-up in a.m. BMP FEN/GI: Acute protein calorie malnutritionmild History dysphasia heart healthy diet as tolerated. ICU electrolyte protocol --Pepcid for GI prophylaxis -- Resume MiraLAX 17 g daily/Senokot twice a day for bowel regimen Heme/ID: Check CBC in a.m. Monitor for infection MSK: Sacral decubitus ulcer (chronic from home) Sciatica Chronic low back pain - Agree with zinc oxide and this is ordered topically. will hold on systemic antibiotics at this time. Endocrine: Diabetes mellitus type II Hypothyroidism Home medication is Lantus 20 units at night. Start Levemir 40 units subcutaneous twice a day. -- SSI, medium scale, before meals/at bedtime. 9 units sliding scale insulin past 24 hours. Continue Levoxyl 25 g by mouth daily. Prophylaxis: GI Prophylaxis Pepcid DVT Prophylaxis -- SCDs, subcutaneous heparin q12h. Lines: Peripheral IVs Critical Care: The total critical care time was 35 minutes. Time to perform other separately billable procedures was not included in the critical care time. Gen Ambrosio MD May 30, 2016 08:00
[2016-05-30] MEDS: CITALOPRAM HYDROBROMIDE 20 MG TAB PO SCH (08:23)
[2016-05-30] MEDS: ASPIRIN EC 81 MG TABEC PO SCH (08:23)
[2016-05-30] MEDS: FAMOTIDINE 20 MG TAB PO SCH ×2 (08:23→20:18)
[2016-05-30] MEDS: POLYETHYLENE GLYCOL 17 GM PKG PO SCH (08:23)
[2016-05-30] MEDS: PRAVASTATIN SOD 80 MG TAB PO SCH (08:23)
[2016-05-30] MEDS: HEPARIN SODIUM - SQ 10,000 UNITS/ML VIAL SQ SCH ×2 (08:24→20:18)
[2016-05-30] MEDS: TIOTROPIUM BROMIDE 18 MCG INH INH SCH (08:24)
[2016-05-30] MEDS: DOCUSATE SODIUM 50 MG/SENNA 8.6 MG TAB PO SCH ×2 (08:24→20:18)
[2016-05-30] MEDS: INSULIN DETEMIR 100 UNITS/ML VIAL SQ SCH ×2 (08:26→20:19)
[2016-05-30] MEDS: SODIUM CHLORIDE 0.9% FLUSH 5 ML FLUSH IV FLUSH SCH ×2 (09:00→20:20)
--- NOTE | 2016-05-30 09:31 | PD.VS.PN ---
Subjective POD #: 3 Procedure(s): TEVAR for ESAU Subjective/Hospital Course spinal drain out, neuro intact HD stable Objective Vitals/I&O Date Time Temp Pulse Resp B/P Pulse Ox O2 Delivery O2 Flow Rate FiO2 05/30/16 08:42 96 Nasal Cannula 2.00 05/30/16 07:41 96 Nasal Cannula 2.00 05/30/16 07:35 143/76 05/30/16 07:00 78 05/30/16 04:12 20 05/30/16 03:30 84 05/30/16 03:15 98.5 86 20 130/62 95 05/30/16 03:05 95 Nasal Cannula 2.00 05/30/16 01:13 98 Nasal Cannula 2.00 05/30/16 00:00 98 Nasal Cannula 2.00 05/30/16 00:00 98.8 77 20 140/62 98 05/30/16 00:00 79 05/29/16 22:02 96 05/29/16 22:00 94 Nasal Cannula 2.00 05/29/16 20:00 Nasal Cannula 3.00 05/29/16 20:00 98.3 87 20 115/55 96 05/29/16 20:00 87 05/29/16 20:00 115/55 05/29/16 16:08 95 Nasal Cannula 3.00 05/29/16 16:00 98.4 86 18 143/60 99 Arterial Line 05/29/16 15:00 92 05/29/16 12:00 94 Nasal Cannula 3.00 05/29/16 11:42 98.1 84 18 134/67 99 05/29/16 11:00 87 05/30/16 05/30/16 05/30/16 07:00 15:00 23:00 Intake Total 480 ml Output Total 345 ml Balance 135 ml Exam: groins ok neuro intact Pulses: palpable Assessment and Plan Plan Neuro intact after TEVAR 1. Resume pre-op meds 2. Reg diet, OOB/PT 3. c/d planning; can f/u 1m with post-op TEVAR CTA Discharge Planning today/tomorrow Jose Cruz MD May 30, 2016 09:31
[2016-05-30 09:40] LABS: MEAN CELL VOLUME 89.3 FL (80.0-100.0); MEAN CORPUSCULAR HEMOGLOBIN 29.2 PG (27.0-34.0); MEAN CORPUSCULAR HGB CONC 32.7 % (32.0-36.0); PLATELET COUNT 227 TH/MM3 (150-450); RED BLOOD COUNT 3.03 MIL/MM3 (4.50-5.90); RED CELL DISTRIBUTION WIDTH 14.3 % (11.6-17.2); REVIEW FLAG FINAL; WHITE BLOOD COUNT 14.6 TH/MM3 (4.0-11.0)
[2016-05-30 10:05] LABS: ANION GAP 7 MEQ/L (5-15); AST (GOT) 10 U/L (15-37); BICARBONATE 26.4 MEQ/L (21.0-32.0); BLOOD UREA NITROGEN 23 MG/DL (7-18); CHLORIDE 104 MEQ/L (98-107); GLOMERULAR FILTRATION RATE 66 ML/MIN (>89); MAGNESIUM 2.4 MG/DL (1.5-2.5); POTASSIUM 4.4 MEQ/L (3.5-5.1); SODIUM (NA) 137 MEQ/L (136-145)
[2016-05-30 10:08] LABS: ALKALINE PHOSPHATASE 94 U/L (45-117); ALT (GPT) 14 U/L (12-78); TOTAL BILIRUBIN ADULT 0.4 MG/DL (0.2-1.0)
[2016-05-30] MEDS: LABETALOL HCL 100 MG TAB PO SCH ×2 (10:12→21:00)
[2016-05-30] MEDS ORDERED: ALPR1TAB3 PO (14:54)
[2016-05-31] VITALS (16 sets, daily range): BP systolic 113–162; BP diastolic 54–73; PULSE 72–84; RESP 14–18; TEMP 97.9–98.3; O2SAT 91–97
[2016-05-31] MEDS ORDERED: CHLORHEXIDINE GLUCONATE 2 % 1 PACK (2 CLOTHS) TOP SCH (04:00)
[2016-05-31] MEDS: ACETAMINOPHEN/HYDROcodone 325 MG/7.5 MG TAB PO PRN ×3 (04:57→13:10)
[2016-05-31] MEDS ORDERED: LEVOTHYROXINE SODIUM 25 MCG TAB PO SCH (06:00)
[2016-05-31] MEDS: LACTATED RINGER'S 1000 ML IV SCH (06:45)
--- NOTE | 2016-05-31 07:09 | HHI.CCPN ---
Subjective Remarks/Hospital Course This is a 71yM who was admitted back in april for back pain and was found at that time to have an unstable plaque of the descending aorta. He was medically managed at this time and now represents for elective TEVAR for definitive management of his unstable aortic plaque/aneurysm. He underwent prophylactic pre-operative lumbar drain placement with interventional radiology. He had an uncomplicated intra-operative course. He arrives to the CVICU mildly somnolent post-anesthesia, extubated. Critical care medicine has been consulted to assist with hemodynamic monitoring post thoracic aortic stenting. 05/28: doing well. uop adequate. drain patent and still at 10cm overnight. clamped this AM at 0900. SBP still in 140-160 range without additional support. tolerating diet. 05/29: doing well. no complaints. uop adequate. neuro intact. drain clamped x 24h. 05/30: Afebrile. No new complaints overnight. No bleeding noted. Tolerating diet. No bowel movement. Subjective: 05/31: Afebrile. Elevated blood pressure noted. On 2 L nasal cannula. Tolerating diet. No acute distress. Objective Vital Signs Date Time Temp Pulse Resp B/P Pulse Ox O2 Delivery O2 Flow Rate FiO2 05/31/16 06:01 76 05/31/16 03:01 96 Room Air 05/31/16 03:01 98.3 18 162/73 05/30/16 11:11 2.00 05/28/16 03:48 35 Intake and Output 05/30/16 05/30/16 05/31/16 08:00 16:00 00:00 Intake Total 480 ml 900 ml Output Total 345 ml 125 ml Balance 135 ml 775 ml Result Diagram: 05/30/16 0836 05/30/16 0836 Imaging Last Impressions Chest X-Ray 05/28/16 0000 Signed Impressions: Service Date/Time: Saturday, May 28, 2016 06:13 - CONCLUSION: The previously noted bilateral pulmonary infiltrates have almost completely resolved when compared to the prior studies.. Paras Hyde MD Lumbar Puncture Fluoroscopy 05/27/16 0000 Signed Impressions: Service Date/Time: Friday, May 27, 2016 10:16 - CONCLUSION: Uncomplicated lumbar drain placement as above. Sean Joseph MD Objective Remarks GENERAL: 71-year-old male, appears stated age currently lying in bed in no acute distress SKIN: Warm and dry. HEAD: Atraumatic. Normocephalic. EYES: Pupils equal and round. No scleral icterus. No injection or drainage. ENT: No nasal bleeding or discharge. Mucous membranes pink and moist. NECK: Trachea midline. No JVD. CARDIOVASCULAR: Regular rate and rhythm. S1, S2. No S4. RESPIRATORY: No accessory muscle use. Clear to auscultation. Breath sounds equal bilaterally. GASTROINTESTINAL: Abdomen soft, non-tender, nondistended. Hepatic and splenic margins not palpable. MUSCULOSKELETAL: Stage II sacral decubitus ulcer. NEUROLOGICAL: Awake and alert. No obvious cranial nerve deficits. Motor grossly within normal limits. Strength is equal symmetric bilaterally. Normal sensation bilateral lower extremities Urinary Catheter: No Assessment to: Continue Vascular Central Line Catheter: No Assessment to: Continue A/P Assessment and Plan Neuro/Psych Acute postoperative pain High risk for anterior column ischemia Depression/anxiety History of insomnia Chronic narcotic use History of CVA Bilateral cataracts Tylenol for fever/, oxycodone, Dilaudid as needed for pain At home on Lortab/Dilaudid as needed for pain medication lumbar drain clamped at 0900 05/27. Removed 05/29 --Continue Celexa 20 mEq by mouth daily/home medication -- Holding Xanax 1 mg by mouth 3 times a day as needed for anxiety and Ambien 5 mg by mouth at night as needed for insomnia. Resume when clinically indicated Respiratory: Postoperative atelectasis History of COPD Ongoing tobaccoism Currently on nasal cannula 2 L to maintain saturations greater than or equal to 92% Incentive spirometer to bedside -- Continue Spiriva 18 mg inhalation daily -- As needed ProAir HFA 2 puffs every 6 hours as needed/home medication -- Tobacco cessation encouraged Cardiovascular: Postop day #4 TEVAR Coronary disease status post [place] 2011 History of right CEA Hypertension Dyslipidemia -- goal SBP 120 - 140 after drain removal. -- Labetalol 10mg iv q1h prn for goal. At home on labetalol 200 mg by mouth twice a day. Resumed -- At home on Pravachol 40 mg by mouth daily for dyslipidemia. -- telemetry -- ASA 81 mg daily resumed Renal: -- Strict I/Os Follow-up in a.m. BMP FEN/GI: Acute protein calorie malnutritionmild History dysphasia heart healthy diet as tolerated. --Pepcid for GI prophylaxis -- Resume MiraLAX 17 g daily/Senokot twice a day for bowel regimen Heme/ID: CBC stable Monitor for infection MSK: Sacral decubitus ulcer (chronic from home) Sciatica Chronic low back pain - Agree with zinc oxide and this is ordered topically. will hold on systemic antibiotics at this time. Endocrine: Diabetes mellitus type II Hypothyroidism Home medication is Lantus 20 units at night. Start Levemir 5 units subcutaneous twice a day. -- SSI, medium scale, before meals/at bedtime. 6 units sliding scale insulin past 24 hours. Continue Levoxyl 25 g by mouth daily. Prophylaxis: GI Prophylaxis Pepcid DVT Prophylaxis -- SCDs, subcutaneous heparin q12h. Lines: Peripheral IVs Critical Care: The total care time was 35 minutes. Time to perform other separately billable procedures was not included in the critical care time. Gen Ambrosio MD May 31, 2016 07:08
[2016-05-31] MEDS ORDERED: INSULIN DETEMIR 100 UNITS/ML VIAL SQ SCH (09:00)
[2016-05-31] MEDS ORDERED: LABETALOL HCL 200 MG TAB PO SCH (09:00)
[2016-05-31] MEDS: FAMOTIDINE 20 MG TAB PO SCH (09:43)
[2016-05-31] MEDS: CITALOPRAM HYDROBROMIDE 20 MG TAB PO SCH (09:43)
[2016-05-31] MEDS: DOCUSATE SODIUM 50 MG/SENNA 8.6 MG TAB PO SCH (09:43)
[2016-05-31] MEDS: ASPIRIN EC 81 MG TABEC PO SCH (09:43)
[2016-05-31] MEDS: PRAVASTATIN SOD 80 MG TAB PO SCH (09:43)
[2016-05-31] MEDS: POLYETHYLENE GLYCOL 17 GM PKG PO SCH (09:44)
[2016-05-31] MEDS: HEPARIN SODIUM - SQ 10,000 UNITS/ML VIAL SQ SCH (09:45)
[2016-05-31] MEDS: SODIUM CHLORIDE 0.9% FLUSH 5 ML FLUSH IV FLUSH SCH (09:46)
[2016-05-31] MEDS: INSULIN NovoLIN REGULAR SUPPLEMENTAL SCALE SQ SCH (11:00)
--- NOTE | 2016-05-31 12:17 | HHI.FF ---
Face to Face Verification Diagnosis: (1) Impaired mobility and activities of daily living (2) Healthcare maintenance (3) Weakness (4) Limb weakness (5) CAD (coronary artery disease) Physical Therapy Order: Evaluate and Treat Instructions: Out Patient PT recommended at home for 3 weeks three times a week Occupational Therapy Order: Evaluate and Treat I have seen patient Dago Burnette on 05/31/16. My clinical findings support the need for the requested home health care services because: He has generalized weakness to lower extremities and will need to have continued PT at home to regain strength Ltd mobility - disease progression Limited ability to care for self High risk of falls I certify that my clinical findings support that this patient is homebound because: He has done well post-op TEVAR and is well enough to go home but will recommend continued home PT to regain strength for ADL'S at home Post-op weakness Unsteady gait/balance Jose Cruz MD [facility] Bita Conroy May 31, 2016 12:17 Jose Cruz MD Jun 01, 2016 05:59
--- NOTE | 2016-05-31 12:25 | PD.VS.DC ---
Discharge Summary Admission Date: May 27, 2016 at 06:08 Discharge Date: May 31, 2016 Admission Diagnosis: (1) Penetrating atherosclerotic ulcer of aorta (2) CAD (coronary artery disease) Discharge Diagnosis: (1) CAD (coronary artery disease) Status: Chronic (2) Penetrating atherosclerotic ulcer of aorta Status: Acute Brief History from admission 71 yo male with focal ESAU diagnosed in Apr with rapid radiographic expansion. Presents to TEVAR. No back pain or chest pain. Procedure(s): TEVAR for ESAU Significant Findings Laboratory Tests Test 05/29/16 05/30/16 04:20 08:36 White Blood Count 15.4 TH/MM3 14.6 TH/MM3 (4.0-11.0) (4.0-11.0) Red Blood Count 3.38 MIL/MM3 3.03 MIL/MM3 (4.50-5.90) (4.50-5.90) Hemoglobin 9.8 GM/DL 8.8 GM/DL (13.0-17.0) (13.0-17.0) Hematocrit 29.3 % 27.0 % (39.0-51.0) (39.0-51.0) Random Glucose 139 MG/DL 149 MG/DL (74-106) (74-106) Blood Urea Nitrogen 23 MG/DL (7-18) Estimat Glomerular Filtration 66 ML/MIN (>89) Rate Calcium Level 8.3 MG/DL (8.5-10.1) Aspartate Amino Transf 10 U/L (15-37) (AST/SGOT) Albumin 2.5 GM/DL (3.4-5.0) Hospital Course: GENERAL: Pt in bed resting with NAD denies any pain or discomfort, A&OX3 SKIN: Warm and dry. NECK: Supple, trachea midline. No JVD or lymphadenopathy. CARDIOVASCULAR: Regular rate and rhythm RESPIRATORY: Breath sounds equal bilaterally. No accessory muscle use. GASTROINTESTINAL: Abdomen soft, non-tender, nondistended. MUSCULOSKELETAL: No cyanosis, or edema. BACK: Nontender without obvious deformity. Denies any pain Discharge Condition: Good Discharge Disposition: Disch w/ Home Health Serv Discharge Instructions: D/C to home with out patient PT Return to clinic at scheduled time 07/05/16 at 0915 Keep incisions open to air Call the office for any questions or concerns Bita SHIPMAN-NEELA [facility] [phone] Any questions or concerns: Call [facility] [phone] Bita Conroy May 31, 2016 12:25
--- NOTE | 2016-06-01 17:36 | MP ---
cc: RAFAEL SCHWAB MD DATE OF SURGERY 05/27/16 PREOPERATIVE DIAGNOSIS Penetrating aortic ulcer. POSTOPERATIVE DIAGNOSIS Penetrating aortic ulcer. PROCEDURE 1. Thoracic endovascular aortic stent not involving left subclavian artery. 2. Intravascular ultrasound of the aortic. 3. Right common femoral artery Angioseal. 4. Left common femoral artery port closed. ATTENDING SURGEON MD GEOVANNI Mccormick MD ASSISTING SURGEON Omid Contreras MD ANESTHESIA General. INDICATIONS Mr. Burnette is a 71-year-old gentleman with penetrating aortic ulcer. He was initially managed medically but over the interval of about 3 weeks he has developed rapid progression and expansion of his penetrating aortic ulcer and is taken to the operating room for elective thoracic stenting. Preoperative discussion was had with the patient and his family about the potential risk of spinal chord ischemia and stroke as well as need for secondary procedures and all the other risks and benefits and after careful consultation he was offered this therapy. A preoperative spinal drain was placed to decrease the chance of spinal cord ischemia and additionally 2 attending surgeons from separate services were required due to the complexity of the case. DESCRIPTION OF PROCEDURE Informed consent was obtained from the patient. He was taken to the operating room and placed supine on the operating table. An appropriate timeout was taken to ensure the patient's identity, operative site and planned procedure. The administration of 2 grams of Kefzol was initiated prior to the skin incision and will be discontinued after a single prep dose. Everyone in the room agreed with time out and we proceeded. He was prepped from his nipples to his knees. A 21 gauge micropuncture needle was used to access the left common femoral arteries. This was exchanged using Seldinger technique, micropuncture sheath through which a common femoral arteriogram was obtained. A 0.025 Storq wire was introduced. The micropuncture was changed for a 5 Welsh sheath and then two Perclose Pro-glide sutures were inserted, tagged and not tied down but will be used later. An 8 Welsh sheath was inserted. On the right hand side an ___ needle was used to access the common femoral artery. This was exchanged using Seldinger technique, micropuncture sheath through which a 0.05 Storq wire was introduced. The micropuncture sheath was exchanged for a 5 Welsh sheath. At this point the patient was chemically heparinized and throughout the remainder of the case ACT was kept greater than 250. Storq wire was advanced to the ascending aorta and over the left hand Storq wire a catheter was placed and the Storq was exchanged for a Lunderquist wire. Over the right hand Storq wire a ___ plus pigtail catheter was placed. Over the left hand Lunderquist wire and through the 8 Welsh sheath an intravascular ultrasound catheter was obtained. SEBASTIAN images located the visceral vessels and most noticeable was the celiac artery and the diameter immediately above being cephalad to this was measured. We then located the area of aortic penetrating ulcer. This was marked on the screen and the diameters were then selected. Based on the SEBASTIAN measurements we selected a Medtronic ___ 30 to 26 tapered by 150 mm device. The SEBASTIAN catheter was removed. The 8 Welsh sheath was removed. Flaquito dilators were used to dilate the skin, subcutaneous tracks and arteriotomy. The Medtronic device was inserted and once in position an angiogram was obtained. This confirmed the device in good position. The device was deployed. A Reliant balloon was used to balloon the proximal and distal ends and at completion angiogram was performed. This showed excellent apposition of the wall proximal and distally and no filling of the aortic pathology. Wire catheter and sheath removed, Perclose were tied down. Hemostasis was achieved in the groin. There was a Doppler signal in the foot and the heparin reversed with protamine. The right 5 Welsh sheath was removed and the right groin was closed with Endoseal. There were no complications. I was present and scrubbed and performed the entire procedure. MD GRACE Agustin/NAM /6:08 PM /4:56 PM
--- NOTE | 2016-06-04 16:33 | PD.OP ---
Operative Report Procedure: 1. Thoracic Endovascular Aortic Stent - not involving Left Subclavian Artery. 2. Intravascular Ultrasound of the Aorta. 3. Right Common Femoral Artery Angioseal. 4. Left Common Femoral Artery Perclose. . Surgeon: Jose Lindsey Acrylic Fabricator(s): Taran Contreras Operation and Findings: PREOPERATIVE DIAGNOSIS Penetrating aortic ulcer. POSTOPERATIVE DIAGNOSIS Penetrating aortic ulcer. PROCEDURE 1. Thoracic Endovascular Aortic Stent - not involving Left Subclavian Artery. 2. Intravascular Ultrasound of the Aorta. 3. Right Common Femoral Artery Angioseal. 4. Left Common Femoral Artery Perclose. ATTENDING SURGEON MD GEOVANNI Mccormick MD ASSISTING SURGEON Taran Contreras, DO ANESTHESIA General Endotracheal. INDICATIONS Mr. Burnette is a 71-year-old gentleman with penetrating aortic ulcer. He was initially managed medically but over the interval of about 3 weeks, he has developed rapid progression and expansion of his penetrating aortic ulcer and is taken to the operating room for elective thoracic stenting. Preoperative discussion was had with the patient and his family about the potential risk of spinal chord ischemia and stroke as well as need for secondary procedures and all the other risks and benefits and after careful consultation he was offered this therapy. A preoperative spinal drain was placed to decrease the chance of spinal cord ischemia and additionally 2 attending surgeons from separate services were required due to the complexity of the case. DESCRIPTION OF PROCEDURE Informed consent was obtained from the patient. He was taken to the operating room and placed supine on the operating table. An appropriate timeout was taken to ensure the patient's identity, operative site and planned procedure. The administration of 2 grams of Kefzol was initiated prior to the skin incision and will be discontinued after a single prep dose. Everyone in the room agreed with time out and we proceeded. He was prepped from his nipples to his knees. A 21 gauge micropuncture needle was used to access the left common femoral arteries. This was exchanged~ using Seldinger technique for a micropuncture sheath through which a common femoral arteriogram was obtained. A 0.035 Storq wire was introduced. The micropuncture was changed for a 5 [place] sheath and then two Perclose Pro-glide sutures were inserted, tagged and not tied down but will be used later.~An 8 [place] sheath was inserted. On the right hand side a micropuncture needle was used to access the common femoral artery. This was exchanged using Seldinger technique, micropuncture sheath through which a 0.05 Storq wire was introduced. The micropuncture sheath was exchanged for a 5 [place] sheath. At this point the patient was systemically heparinized and throughout the remainder of the case ACT was kept greater than 250. The Storq wire was advanced to the ascending aorta and over the left hand Storq wire a catheter was placed and the Storq was exchanged for a Lunderquist wire. Over the right hand Storq wire a marker flush pigtail catheter was placed. Over the left hand Lunderquist wire and through the 8 [place] sheath an intravascular ultrasound catheter was introduced. IVUS images located the visceral vessels and most noticeable was the celiac artery and the diameter immediately above being cephalad to this was measured. We then located the area of aortic penetrating ulcer. This was marked on the screen and the diameters were then selected. Based on the IVUS measurements we selected a Medtronic Valiant 30 to 26 tapered by 150 mm device. The IVUS catheter was removed. The 8 [place] sheath was removed. Da dilators were used to dilate the skin, subcutaneous tracks and arteriotomy. The Medtronic device was inserted and once in position an angiogram was obtained. This confirmed the device in good position. The device was deployed. A Reliant balloon was used to balloon the proximal and distal ends and a completion angiogram was performed. This showed excellent apposition of the wall proximal and distally and no filling of the aortic pathology. Wire catheter and sheath removed, Perclose were tied down. Hemostasis was achieved in the groin. There was a Doppler signal in the foot and the heparin reversed with protamine. The right 5 [place] sheath was removed and the right groin was closed with an Angioseal. There were no complications. I was present and scrubbed the entire procedure. Kacy Lindsey MD Jun 04, 2016 16:33
[2016-06-11] MEDS ORDERED: LABE200T2 PO (13:18)
[2016-06-11] MEDS ORDERED: CELE20TA PO (13:18)
[2016-06-11] MEDS ORDERED: PLAV75TA29 PO (13:18)
[2016-06-11] MEDS ORDERED: LEVO25TA4 PO (13:18)
[2016-06-11] MEDS ORDERED: PRAV80TA PO (13:18)
[2016-06-21] MEDS ORDERED: LISI-519 PO (13:37)
[2016-06-21] MEDS ORDERED: HYDR2TAB PO (13:55)
[2016-06-21] MEDS ORDERED: HYDR-3534 PO (13:55)
[2016-06-21] MEDS ORDERED: NEBULIZER1 MI1 (13:55)
[2016-06-25] MEDS ORDERED: LANTINJ SQ (09:55)
[2016-06-25] MEDS ORDERED: INSU-91 (09:55)
[2016-06-28] MEDS ORDERED: PLAV75TA29 PO (14:33)
[2016-07-01] MEDS ORDERED: HYDR2TAB PO (11:22)
[2016-07-11] MEDS ORDERED: LEVO25TA4 PO (17:39)
[2016-07-11] MEDS ORDERED: LABE200T2 PO (17:40)
[2016-07-11] MEDS ORDERED: PRAV80TA PO (17:40)
[2016-07-15] MEDS ORDERED: ALPR1TAB3 PO (17:39)
[2016-07-17] MEDS ORDERED: [UNRECOGNIZED DRUG - OTHER] (16:05)
[2016-07-17] MEDS ORDERED: HYDR2TAB PO (16:08)
[2016-07-17] MEDS ORDERED: HYDR-3534 PO (16:08)
[2016-07-30] MEDS ORDERED: ACCUKIT (09:19)
[2016-07-30] MEDS ORDERED: [UNRECOGNIZED DRUG - SUPPLY] (09:22)
[2016-08-05] MEDS ORDERED: LISI-519 PO (13:39)
[2016-09-27] MEDS ORDERED: ZINC40OI TOPICAL ×2 (11:58→12:00)
[2016-09-27] MEDS ORDERED: LANTINJ SQ ×2 (11:58→12:00)
[2016-09-27] MEDS ORDERED: OXYC1TAB35 PO (12:00)
[2016-09-27] MEDS ORDERED: LEVO25TA4 PO (12:00)
[2016-09-27] MEDS ORDERED: SPIRCAP INH (12:00)
[2016-09-27] MEDS ORDERED: PLAV75TA29 PO (12:00)
[2016-09-27] MEDS ORDERED: CALG500 PO (12:00)
[2016-09-27] MEDS ORDERED: LISI10TA3 PO (12:00)
[2016-09-27] MEDS ORDERED: CELE20TA PO (12:00)
[2016-09-27] MEDS ORDERED: VITD400 PO (12:00)
[2016-09-27] MEDS ORDERED: SENN1TAB PO (12:00)
[2016-09-27] MEDS ORDERED: PRAV80TA PO (12:00)
[2016-09-27] MEDS ORDERED: METO25TA3 PO (12:00)
[2016-09-27] MEDS ORDERED: ASPI81TA11 PO (12:05)
[2016-09-27] MEDS ORDERED: NITR0.4S SL (12:05)
[2016-10-04] MEDS ORDERED: METO25TA3 PO (16:41)
[2016-10-08] MEDS ORDERED: TIZA4TAB PO (14:16)
[2016-10-09] MEDS ORDERED: OXYC1TAB35 PO (16:44)
[2016-10-11] MEDS ORDERED: OXYC1TAB35 PO (15:48)
[2016-10-15] MEDS ORDERED: BLOOD GLUCOSE T1 TES (10:24)
== END 2016-05-31 14:13 | disposition home health service (06) | DRG 253 ==
LOC: HSDI 05-27 06:08 → HCVR 05-27 13:07 → HCPC 05-30 11:48
PROVIDERS: ADMIT Surgery; ATTEND Surgery
PROC: 027W3DZ Dilation of Thoracic Aorta, Descending with Intraluminal Device, Percutaneous Approach (ICD-10-PCS; principal; 2016-05-27 11:28)
PROC: 009U30Z Drainage of Spinal Canal with Drainage Device, Percutaneous Approach (ICD-10-PCS; 2016-05-27 11:28)
DX: I71.2 Thoracic aortic aneurysm, without rupture (principal); J95.89 Other postprocedural complications and disorders of respiratory system, not elsewhere classified; L89.152 Pressure ulcer of sacral region, stage 2; E11.69 Type 2 diabetes mellitus with other specified complication; E11.65 Type 2 diabetes mellitus with hyperglycemia; J44.9 Chronic obstructive pulmonary disease, unspecified; E44.1 Mild protein-calorie malnutrition; J98.11 Atelectasis; I10 Essential (primary) hypertension; I25.10 Atherosclerotic heart disease of native coronary artery without angina pectoris; E78.5 Hyperlipidemia, unspecified; E03.9 Hypothyroidism, unspecified; G47.33 Obstructive sleep apnea (adult) (pediatric); F41.9 Anxiety disorder, unspecified; F17.210 Nicotine dependence, cigarettes, uncomplicated; G89.18 Other acute postprocedural pain; F32.9 Major depressive disorder, single episode, unspecified; G89.29 Other chronic pain; M54.30 Sciatica, unspecified side; G47.00 Insomnia, unspecified; H26.9 Unspecified cataract; I70.0 Atherosclerosis of aorta; Z68.27 Body mass index [BMI] 27.0-27.9, adult; I25.2 Old myocardial infarction; Z79.4 Long term (current) use of insulin; Z79.82 Long term (current) use of aspirin; Z79.891 Long term (current) use of opiate analgesic; Z86.73 Personal history of transient ischemic attack (TIA), and cerebral infarction without residual deficits; Z16.20 Resistance to unspecified antibiotic
CPT/HCPCS: 11042; 36415; 63741; 71010; 75605; 77003; 80048; 80053; 82948; 83735; 84100; 85014; 85018; 85025; 85027; 85610; 86850; 86900; 86901; 87070; 87077; 87186; 87205; 87641; 94002; 94150; 94640; 94667; 94668; 99152; 99212; C1725; C1753; C1755; C1769; G0463; J0690; J1170; J1644; J2250; J2370; J2405; J2710; J2720; J3010; J3370; J7040; J7050; J7120; Q9967

== ENCOUNTER → 2016-05-24 | Outpatient (CLI) | payer MEDICARE, OTHER ==
[~2016-05-24] MED LIST: ACCUKIT; ACET325T PO; ALBUAER3 INH; ALPR.5 PO; ALPR1TAB3 PO; AMBI5TAB PO; AMPI500C8 PO; ASPI81TA11 PO; BLOOD GLUCOSE T1 TES; CALG500 PO; CELE20TA PO; GETGO ROLLING W1 MI1; GLYC2SUP RECTAL; HYDR-3534 PO; HYDR-3580 PO; HYDR25TA5 PO; HYDR2TAB PO; INSU-91; IPRA0.02 INH; LABE100T2 PO; LABE200T2 PO; LANTINJ SQ; LANTUS2P SQ; LEVO25TA4 PO; LIDO5DIS35 TD; LISI-519 PO; LISI10TA3 PO; METO25TA3 PO; NEBULIZER1 MI1; NITR0.4S SL; OXYC1TAB35 PO; PLAV75TA29 PO; POLY17S PO; PRAV80TA PO; SENN1TAB PO; SPIRCAP INH; TIZA4TAB PO; VITD400 PO; ZINC20OI TOPICAL; ZINC40OI TOPICAL; ZOFR4TAB PO; [UNRECOGNIZED DRUG - OTHER]; [UNRECOGNIZED DRUG - SUPPLY]
[2016-05-24 13:44] LABS: PROTHROMBIN TIME - PATIENT 10.6 SEC (9.8-11.6)
[2016-05-24 13:45] LABS: AUTOMATED NEUTROPHIL # 8.7 TH/MM3 (1.8-7.7); BASOPHIL % 0.4 % (0.0-2.0); EOSINOPHIL # 0.4 TH/MM3 (0-0.4); EOSINOPHIL % 3.4 % (0.0-4.0); HEMATOCRIT 31.9 % (39.0-51.0); HEMO FLAGS DIFF FINAL; LYMPH % 12.4 % (9.0-44.0); LYMPHOCYTE # 1.4 TH/MM3 (1.0-4.8); MEAN CELL VOLUME 88.2 FL (80.0-100.0); MEAN CORPUSCULAR HEMOGLOBIN 28.9 PG (27.0-34.0); MEAN CORPUSCULAR HGB CONC 32.7 % (32.0-36.0); MONO % 6.9 % (0.0-8.0); NEUT % 76.9 % (16.0-70.0); PLATELET COUNT 286 TH/MM3 (150-450); RED BLOOD COUNT 3.62 MIL/MM3 (4.50-5.90); RED CELL DISTRIBUTION WIDTH 14.4 % (11.6-17.2); WHITE BLOOD COUNT 11.4 TH/MM3 (4.0-11.0)
[2016-05-24 13:59] LABS: ANION GAP 6 MEQ/L (5-15); AST (GOT) 18 U/L (15-37); BICARBONATE 29.4 MEQ/L (21.0-32.0); BLOOD UREA NITROGEN 31 MG/DL (7-18); CHLORIDE 100 MEQ/L (98-107); GLOMERULAR FILTRATION RATE 59 ML/MIN (>89); GLUCOSE,FASTING 142 MG/DL (74-99); POTASSIUM 5.1 MEQ/L (3.5-5.1); SODIUM (NA) 135 MEQ/L (136-145)
[2016-05-24 14:03] LABS: ALKALINE PHOSPHATASE 116 U/L (45-117); ALT (GPT) 34 U/L (12-78); TOTAL BILIRUBIN ADULT 0.3 MG/DL (0.2-1.0)
== END ==
LOC: CPRE 12:23
PROVIDERS: ATTEND Surgery
DX: I71.2 Thoracic aortic aneurysm, without rupture (principal); Z01.812 Encounter for preprocedural laboratory examination
CPT/HCPCS: 36415; 80053; 85025; 85610

== ENCOUNTER 2016-08-07 14:03 | Inpatient (IN) | payer MEDICARE, MEDICAID ==
[~2016-08-07] VITALS: Ht 175.3 cm; Wt 76.5 kg
[2016-08-07] VITALS (7 sets, daily range): BP systolic 109–187; BP diastolic 66–84; PULSE 77–89; RESP 16–18; TEMP 97.4; O2SAT 93–98
[~2016-08-07 14:03] MED LIST changes: +ACCUKIT; -ALPR.5 PO; +ALPR1TAB3 PO; +HYDR-3534 PO; +HYDR2TAB PO; +INSU-91; +LANTINJ SQ; +LISI-519 PO; +NEBULIZER1 MI1; +POLY17S PO; +[UNRECOGNIZED DRUG - OTHER]; +[UNRECOGNIZED DRUG - SUPPLY]
[2016-08-07] MEDS ORDERED: ONDANSETRON HCL 4 MG/2 ML VIAL IV PUSH ONE (14:45)
[2016-08-07] MEDS ORDERED: MORPHINE SULFATE 4 MG/ML INJ IV PUSH ONE ×2 (14:45→16:00)
--- NOTE | 2016-08-07 14:57 | PD ---
HPI Chief Complaint: Fall Time Seen by Provider: 14:50 Travel History International Travel<30 days: No Contact w/Intl Traveler<30days: No Traveled to known affect area: No History of Present Illness HPI 71-year-old male presents to the emergency department for evaluation after fall that occurred just prior to arrival. Patient states that he has a history of degenerative disc disease. He was trying to stand up when his legs gave out. He states he has a history of the same. Patient complains of left shoulder pain. He denies hitting his head or loss of consciousness. He is on Plavix, anticoagulants, but is adamant that he did not hit his head. He denies any neck pain or back pain. No chest pain or abdominal pain. No nausea or vomiting. Patient states his tetanus immunization is up-to-date. He complains of abrasions to the right arm, left elbow, left knee. He has a PMH of bedsores , diabetes mellitus, AL, CVA, hypothyroidism, hyperlipidemia, anxiety, DJD, stented aorta. He does use tobacco, 1 pack per day. PFSH Past Medical History Hx Anticoagulant Therapy: Yes Arthritis: No Asthma: No Autoimmune Disease: No Blood Disorders: No Anxiety: No Depression: No Heart Rhythm Problems: Yes Cancer: No Cardiovascular Problems: Yes (STENT) High Cholesterol: No Chemotherapy: No Chest Pain: Yes Congestive Heart Failure: Yes COPD: Yes Cerebrovascular Accident: Yes Coronary Artery Disease: Yes Diabetes: Yes (TYPE II) Patient Takes Glucophage: No Diminished Hearing: No Endocrine: Yes Gastrointestinal Disorders: Yes (DYSPHAGIA) GERD: No Genitourinary: Yes (FREQUENCY) Hiatal Hernia: No Hypertension: Yes Immune Disorder: No Kidney Stones: No Medical other: Yes (BUTTOCKS PRESSURE ULCER STGE II) Musculoskeletal: Yes (CHRONIC LOW BACK, COMPRESSION FX, PARTIAL PARALYSIS BLE, SCIATICA) Neurologic: No Psychiatric: No Reproductive: No Respiratory: Yes (COPD) Migraines: No Myocardial Infarction: No Radiation Therapy: No Renal Failure: No Seizures: No Sickle Cell Disease: No Sleep Apnea: No Thyroid Disease: Yes (HYPOTHYROIDISM) Ulcer: No Influenza Vaccination: Yes Past Surgical History Abdominal Surgery: No AICD: No Arteriovenous Shunt: No Cardiac Surgery: Yes (R ENDARTECTOMY) Ear Surgery: No Endocrine Surgery: No Eye Surgery: Yes (BILAT CAT) Genitourinary Surgery: No Gynecologic Surgery: No Insulin Pump: No Joint Replacement: No Neurologic Surgery: No Oral Surgery: No Pacemaker: No Thoracic Surgery: No Other Surgery: Yes Social History Alcohol Use: No Tobacco Use: Yes (1 PPD) Substance Use: No Allergies-Medications (Allergen,Severity, Reaction): Coded Allergies: Tramadol (Verified Allergy, Unknown, Rash, 08/07/16) Reported Meds & Prescriptions Reported Meds & Active Scripts Active Hydromorphone (Hydromorphone HCl) 2 Mg Tab 2 Mg PO DAILY PRN Lortab (Hydrocodone-Acetaminophen) 7.5-325 Mg Tab 1 Tab PO Q6H PRN Alprazolam 1 Mg Tab 1 Mg PO Q8H PRN Pravachol (Pravastatin) 80 Mg Tab 80 Mg PO DAILY Labetalol (Labetalol HCl) 200 Mg Tab 200 Mg PO Q12HR Levothyroxine (Levothyroxine Sodium) 25 Mcg Tab 25 Mcg PO DAILY@06 Plavix (Clopidogrel Bisulfate) 75 Mg Tab 75 Mg PO DAILY Lantus Solostar Pen Inj (Insulin Glargine) 300 Unit/3 Ml Pen 20 Units SQ HS Celexa (Citalopram Hydrobromide) 20 Mg Tab 20 Mg PO DAILY Spiriva Handihaler (Tiotropium Inh) 18 Mcg Cap 1 Puff INH DAILY 1 capsule = 18 mcg Ambien (Zolpidem Tartrate) 5 Mg Tab 5 Mg PO HS PRN Aspirin EC (Aspirin) 81 Mg Tabdr 81 Mg PO DAILY 30 Days Senna Plus 8.6-50 mg (Sennosides-Docusate Sodium) 1 Tab Tab 1 Tab PO BID Reported Lisinopril 10 Mg Tab 10 Mg PO DAILY Metoprolol Tartrate 25 Mg Tab 25 Mg PO BID Nitrostat SL (Nitroglycerin) 0.4 Mg Subl 0.4 Mg SL DIRECTED PRN 1 tablet under the tongue as needed for chest pain. Repeat every 5 minutes for a total of 3 DOSES or call 911 if NO relief. Review of Systems Except as stated in HPI: all other systems reviewed are Neg Physical Exam Narrative GENERAL: Well-nourished, well-developed male patient, afebrile SKIN: Focused skin assessment warm/dry. Patient has Abrasion to right forearm, left anterior knee, left elbow. No lacerations. HEAD: Normocephalic. Atraumatic EYES: No scleral icterus. No injection or drainage. NECK: Supple, trachea midline. No JVD or lymphadenopathy. CARDIOVASCULAR: Regular rate and rhythm without murmurs, gallops, or rubs. Bilateral radial pulses 2+. RESPIRATORY: Breath sounds equal bilaterally. No accessory muscle use. Lungs sounds are clear to auscultation. GASTROINTESTINAL: Abdomen soft, non-tender, nondistended. MUSCULOSKELETAL: No cyanosis, or edema. Patient has obvious deformity over left shoulder. BACK: Nontender without obvious deformity. No CVA tenderness. No midline spinal tenderness. Data Data Last Documented VS Vital Signs Date Time Temp Pulse Resp B/P Pulse Ox O2 Delivery O2 Flow Rate FiO2 08/07/16 16:09 87 18 187/84 95 Room Air 08/07/16 14:16 97.4 Orders Complete Blood Count With Diff (08/07/16 14:42) Comprehensive Metabolic Panel (08/07/16 14:42) Prothrombin Time / Inr (Pt) (08/07/16 14:42) Act Partial Throm Time (Ptt) (08/07/16 14:42) Chest, Single Ap (08/07/16 14:42) Iv Access Insert/Monitor (08/07/16 14:42) Ecg Monitoring (08/07/16 14:42) Oximetry (08/07/16 14:42) Shoulder, Limited(2vws) (08/07/16 14:42) Morphine Inj (Morphine Inj) (08/07/16 14:45) Ondansetron Inj (Zofran Inj) (08/07/16 14:45) Humerus (Min 2vws) (08/07/16 ) Potassium, Serum (K) (08/07/16 15:59) Urinalysis - C+S If Indicated (08/07/16 15:59) Electrocardiogram (08/07/16 ) Morphine Inj (Morphine Inj) (08/07/16 16:00) Calcium Gluconate Inj (Calcium Gluconate (08/07/16 16:30) Dextrose 50% In Krystle (Vial) Inj (D50w (Vi (08/07/16 16:30) Insulin Human Regular Inj (Novolin R Inj (08/07/16 16:30) Blood Culture (08/07/16 16:35) Lactic Acid Sepsis Protocol (08/07/16 16:35) Hydromorphone Pf Inj (Dilaudid Pf Inj) (08/07/16 17:00) Labs Laboratory Tests Test 08/07/16 08/07/16 08/07/16 15:00 16:00 16:10 White Blood Count 17.0 TH/MM3 Red Blood Count 3.76 MIL/MM3 Hemoglobin 10.9 GM/DL Hematocrit 32.4 % Mean Corpuscular Volume 86.1 FL Mean Corpuscular Hemoglobin 29.0 PG Mean Corpuscular Hemoglobin 33.7 % Concent Red Cell Distribution Width 18.1 % Platelet Count 274 TH/MM3 Mean Platelet Volume 8.9 FL Neutrophils (%) (Auto) 83.7 % Lymphocytes (%) (Auto) 6.8 % Monocytes (%) (Auto) 7.9 % Eosinophils (%) (Auto) 1.2 % Basophils (%) (Auto) 0.4 % Neutrophils # (Auto) 14.2 TH/MM3 Lymphocytes # (Auto) 1.2 TH/MM3 Monocytes # (Auto) 1.3 TH/MM3 Eosinophils # (Auto) 0.2 TH/MM3 Basophils # (Auto) 0.1 TH/MM3 CBC Comment DIFF FINAL Differential Comment Prothrombin Time 10.7 SEC Prothromb Time International 1.0 RATIO Ratio Activated Partial 24.7 SEC Thromboplast Time Sodium Level 137 MEQ/L Potassium Level 6.1 MEQ/L 5.5 MEQ/L Chloride Level 108 MEQ/L Carbon Dioxide Level 21.9 MEQ/L Anion Gap 7 MEQ/L Blood Urea Nitrogen 27 MG/DL Creatinine 1.11 MG/DL Estimat Glomerular Filtration 66 ML/MIN Rate Random Glucose 151 MG/DL Calcium Level 9.3 MG/DL Total Bilirubin 0.3 MG/DL Aspartate Amino Transf 20 U/L (AST/SGOT) Alanine Aminotransferase 25 U/L (ALT/SGPT) Alkaline Phosphatase 115 U/L Total Protein 7.2 GM/DL Albumin 3.4 GM/DL Urine Color YELLOW Urine Turbidity CLEAR Urine pH 7.0 Urine Specific [place] 1.015 Urine Protein 100 mg/dL Urine Glucose (UA) NEG mg/dL Urine Ketones TRACE mg/dL Urine Occult Blood NEG Urine Nitrite NEG Urine Bilirubin NEG Urine Urobilinogen LESS THAN 2.0 MG/DL Urine Leukocyte Esterase NEG Urine RBC 1 /hpf Urine WBC 2 /hpf Microscopic Urinalysis Comment CULT NOT INDICATED MDM Medical Decision Making Medical Screen Exam Complete: Yes Emergency Medical Condition: Yes Medical Record Reviewed: Yes Interpretation(s) chest x-ray - CONCLUSION: Mild left base parenchymal opacity and stable interstitial prominence x-ray left humerus - CONCLUSION: Fracture through the surgical neck of the proximal left humerus. x-ray left shoulder - CONCLUSION: Fracture through the surgical neck of the proximal humerus. Differential Diagnosis Fracture versus dislocation versus abrasion versus contusion versus sprain versus strain Narrative Course 71-year-old male presents to the emergency department for evaluation of left shoulder injury after a fall that occurred just prior to arrival. My attending physician, Dr. Kinsey, saw patient with me. CBC, CMP, PTT, PTT/INR, x-ray of the left shoulder, x-ray left humerus, chest x-ray ordered and pending. Patient is given morphine 2 mg IV and Zofran 4 mg IV. CBC shows leukocytosis 17.0, neutrophilia 83.7. CMP shows hyperkalemia 6.1, repeat is 5.5. Coags are unremarkable. X-ray of the left shoulder shows fracture through the surgical neck of the proximal humerus.. X-ray of the left humerus shows fracture through the surgical neck of the proximal humerus.. Chest x-ray shows mild left base parenchymal opacity and stable interstitial prominence. EKG is completed which shows sinus rhythm, heart rate 80, no acute ST changes. UA shows no evidence of infection. Unable to completely evaluation left elbow on exam. I spoke to the patient x-ray and elbow. He states he has not had pain in the elbow and does not want an x-ray to be completed. Patient is given Rocephin 1 g IV and azithromycin 500 mg IV for pneumonia. Orthopedist recreational aide is paged. The patient will be admitted for humeral fracture , pneumonia, weakness, hyperkalemia. He verbalizes agreement to this. [facility] is paged for admission. Dr. Al Seals returned my page. He'll like a CT of the shoulder completed and Dr. Hawthorne consulted on his admission. Orders are placed. Sepsis Criteria SIRS Criteria (2 or more): WBC > 75721, < 4000 or > 10% bands Diagnosis Primary Impression: Pneumonia Qualified Code: J18.1 - Pneumonia of left lower lobe due to infectious organism Additional Impressions: Left humeral fracture Qualified Code: S42.202A - Closed fracture of proximal end of left humerus, unspecified fracture morphology, initial encounter Weakness Hyperkalemia Admitting Information Admitting Physician Requests: Admit Andie Gordon Aug 07, 2016 14:57 Andie Gordon Aug 07, 2016 14:57
[2016-08-07 15:17] LABS: AUTOMATED NEUTROPHIL # 14.2 TH/MM3 (1.8-7.7); BASOPHIL # 0.1 TH/MM3 (0-0.2); BASOPHIL % 0.4 % (0.0-2.0); EOSINOPHIL # 0.2 TH/MM3 (0-0.4); EOSINOPHIL % 1.2 % (0.0-4.0); HEMATOCRIT 32.4 % (39.0-51.0); HEMO FLAGS DIFF FINAL; LYMPH % 6.8 % (9.0-44.0); LYMPHOCYTE # 1.2 TH/MM3 (1.0-4.8); MEAN CELL VOLUME 86.1 FL (80.0-100.0); MEAN CORPUSCULAR HGB CONC 33.7 % (32.0-36.0); MONO % 7.9 % (0.0-8.0); NEUT % 83.7 % (16.0-70.0); PLATELET COUNT 274 TH/MM3 (150-450); RED BLOOD COUNT 3.76 MIL/MM3 (4.50-5.90); RED CELL DISTRIBUTION WIDTH 18.1 % (11.6-17.2)
[2016-08-07 15:25] LABS: APTT (PATIENT) 24.7 SEC (24.3-30.1); PROTHROMBIN TIME - PATIENT 10.7 SEC (9.8-11.6)
[2016-08-07 15:53] LABS: ALKALINE PHOSPHATASE 115 U/L (45-117); TOTAL BILIRUBIN ADULT 0.3 MG/DL (0.2-1.0)
[2016-08-07 15:56] LABS: ALT (GPT) 25 U/L (12-78); ANION GAP 7 MEQ/L (5-15); AST (GOT) 20 U/L (15-37); BICARBONATE 21.9 MEQ/L (21.0-32.0); BLOOD UREA NITROGEN 27 MG/DL (7-18); CHLORIDE 108 MEQ/L (98-107); GLOMERULAR FILTRATION RATE 66 ML/MIN (>89); POTASSIUM 6.1 MEQ/L (3.5-5.1); SODIUM (NA) 137 MEQ/L (136-145)
[2016-08-07 16:23] LABS: BLOOD, URINE NEG (NEG); GLUCOSE,URINE NEG (NEG); KETONE, URINE TRACE mg/dL (NEG); NITRITE,URINE NEG (NEG); URINE COLOR YELLOW (YELLW/STRAW)
[2016-08-07 16:29] LABS: COMMENT (UR) CULT NOT INDICATED; CULTURE IF INDICATED CULT NOT INDICATED
[2016-08-07] MEDS ORDERED: INSULIN HUMAN REGULAR 1,000 UNITS/10 ML VIAL IV PUSH ONE (16:30)
[2016-08-07] MEDS ORDERED: CALCIUM GLUCONATE INJ 1 GM in DEXTROSE 5% IN WATER 100ML INJ 100 ML IV ONE ×2 (16:30)
[2016-08-07] MEDS ORDERED: DEXTROSE 50% IN WATER 50 ML VIAL(D50) IV PUSH ONE (16:30)
[2016-08-07] MEDS ORDERED: HYDROmorphone HCL PF 1 MG/ML VIAL IV PUSH ONE ×2 (17:00→17:30)
--- NOTE | 2016-08-07 17:03 | RADRPT ---
EXAM DATE/TIME: 08/07/2016 16:02 [facility] COMPARISON: CHEST SINGLE AP, May 28, 2016, 6:13. INDICATIONS : Chest pain after falling out of wheelchair today. MEDICAL HISTORY : Hypertension. Chronic obstructive pulmonary disease. Diabetes mellitus type II. Stroke. Smoker. C HF. SURGICAL HISTORY : IVC filter placement. Coronary artery stent. ENCOUNTER: Initial ACUITY: 1 day PAIN SCORE: 2/10 LOCATION: Left chest FINDINGS: Thoracic aortic endograft is in stable position. There is mild atelectasis at the left lung base. Sli ght diffuse coarse interstitial prominence is unchanged. No evidence of effusion. Cardiac contours ar e stable. CONCLUSION: Mild left base parenchymal opacity and stable interstitial prominence Munir Quintero MD on August 07, 2016 at 17:00 Board Certified Radiologist. This report was verified electronically.
[2016-08-07] MEDS ORDERED: AZITHROMYCIN INJ 500 MG in SODIUM CHLOR 0.9% 250 ML INJ 250 ML IV ONE (17:15)
[2016-08-07] MEDS ORDERED: cefTRIAXone INJ 1,000 MG in SODIUM CHLORIDE 0.9% INJ 100 ML IV ONE (17:15)
--- NOTE | 2016-08-07 17:25 | PD ---
Physical Exam Narrative Patient was seen and examined with my assistant auditor Data Data Last Documented VS Vital Signs Date Time Temp Pulse Resp B/P Pulse Ox O2 Delivery O2 Flow Rate FiO2 08/07/16 16:09 87 18 187/84 95 Room Air 08/07/16 14:16 97.4 Orders Complete Blood Count With Diff (08/07/16 14:42) Comprehensive Metabolic Panel (08/07/16 14:42) Prothrombin Time / Inr (Pt) (08/07/16 14:42) Act Partial Throm Time (Ptt) (08/07/16 14:42) Chest, Single Ap (08/07/16 14:42) Iv Access Insert/Monitor (08/07/16 14:42) Ecg Monitoring (08/07/16 14:42) Oximetry (08/07/16 14:42) Shoulder, Limited(2vws) (08/07/16 14:42) Morphine Inj (Morphine Inj) (08/07/16 14:45) Ondansetron Inj (Zofran Inj) (08/07/16 14:45) Humerus (Min 2vws) (08/07/16 ) Potassium, Serum (K) (08/07/16 15:59) Urinalysis - C+S If Indicated (08/07/16 15:59) Electrocardiogram (08/07/16 ) Morphine Inj (Morphine Inj) (08/07/16 16:00) Calcium Gluconate Inj (Calcium Gluconate (08/07/16 16:30) Dextrose 50% In Krystle (Vial) Inj (D50w (Vi (08/07/16 16:30) Insulin Human Regular Inj (Novolin R Inj (08/07/16 16:30) Blood Culture (08/07/16 16:35) Lactic Acid Sepsis Protocol (08/07/16 16:35) Hydromorphone Pf Inj (Dilaudid Pf Inj) (08/07/16 17:00) Admit Order (Ed Use Only) (08/07/16 16:55) Labs Laboratory Tests Test 08/07/16 08/07/16 08/07/16 15:00 16:00 16:10 White Blood Count 17.0 TH/MM3 Red Blood Count 3.76 MIL/MM3 Hemoglobin 10.9 GM/DL Hematocrit 32.4 % Mean Corpuscular Volume 86.1 FL Mean Corpuscular Hemoglobin 29.0 PG Mean Corpuscular Hemoglobin 33.7 % Concent Red Cell Distribution Width 18.1 % Platelet Count 274 TH/MM3 Mean Platelet Volume 8.9 FL Neutrophils (%) (Auto) 83.7 % Lymphocytes (%) (Auto) 6.8 % Monocytes (%) (Auto) 7.9 % Eosinophils (%) (Auto) 1.2 % Basophils (%) (Auto) 0.4 % Neutrophils # (Auto) 14.2 TH/MM3 Lymphocytes # (Auto) 1.2 TH/MM3 Monocytes # (Auto) 1.3 TH/MM3 Eosinophils # (Auto) 0.2 TH/MM3 Basophils # (Auto) 0.1 TH/MM3 CBC Comment DIFF FINAL Differential Comment Prothrombin Time 10.7 SEC Prothromb Time International 1.0 RATIO Ratio Activated Partial 24.7 SEC Thromboplast Time Sodium Level 137 MEQ/L Potassium Level 6.1 MEQ/L 5.5 MEQ/L Chloride Level 108 MEQ/L Carbon Dioxide Level 21.9 MEQ/L Anion Gap 7 MEQ/L Blood Urea Nitrogen 27 MG/DL Creatinine 1.11 MG/DL Estimat Glomerular Filtration 66 ML/MIN Rate Random Glucose 151 MG/DL Calcium Level 9.3 MG/DL Total Bilirubin 0.3 MG/DL Aspartate Amino Transf 20 U/L (AST/SGOT) Alanine Aminotransferase 25 U/L (ALT/SGPT) Alkaline Phosphatase 115 U/L Total Protein 7.2 GM/DL Albumin 3.4 GM/DL Urine Color YELLOW Urine Turbidity CLEAR Urine pH 7.0 Urine Specific [place] 1.015 Urine Protein 100 mg/dL Urine Glucose (UA) NEG mg/dL Urine Ketones TRACE mg/dL Urine Occult Blood NEG Urine Nitrite NEG Urine Bilirubin NEG Urine Urobilinogen LESS THAN 2.0 MG/DL Urine Leukocyte Esterase NEG Urine RBC 1 /hpf Urine WBC 2 /hpf Microscopic Urinalysis Comment CULT NOT INDICATED MDM Supervised Visit with LUIS: Yes Narrative Course Patient was seen and examined with my assistant auditor Surinder Kinsey MD Aug 07, 2016 17:25
--- NOTE | 2016-08-07 17:27 | RADRPT ---
EXAM DATE/TIME: 08/07/2016 15:53 [facility] COMPARISON: No previous studies available for comparison. INDICATIONS : Left shoulder pain after falling out of wheelchair today. MEDICAL HISTORY : Hypertension. Chronic obstructive pulmonary disease. Diabetes mellitus type II. Stroke. CHF. Smok er. SURGICAL HISTORY : IVC filter placement. Coronary artery stent. ENCOUNTER: Initial ACUITY: 1 day PAIN SCORE: 10/10 LOCATION: Left proximal humerus. FINDINGS: Two view examination of the left shoulder demonstrates fracture through the surgical neck of the prox imal humerus without dislocation. Stent graft in the descending thoracic aorta CONCLUSION: Fracture through the surgical neck of the proximal humerus. Michael Joel MD on August 07, 2016 at 17:22 Board Certified Radiologist. This report was verified electronically.
--- NOTE | 2016-08-07 17:27 | RADRPT ---
EXAM DATE/TIME: 08/07/2016 15:54 [facility] COMPARISON: No previous studies available for comparison. INDICATIONS : Left proximal humerus pain after falling out of a wheelchair today. MEDICAL HISTORY : Hypertension. Chronic obstructive pulmonary disease. Diabetes mellitus type II. Stroke. CHF. Smok er. SURGICAL HISTORY : Coronary artery stent. ENCOUNTER: Initial ACUITY: 1 day PAIN SCORE: 10/10 LOCATION: Left proximal humerus. FINDINGS: Two view examination of the left humerus demonstrates a fracture through the surgical neck CONCLUSION: Fracture through the surgical neck of the proximal left humerus. Michael Joel MD on August 07, 2016 at 17:25 Board Certified Radiologist. This report was verified electronically.
[2016-08-07] MEDS ORDERED: METO25TA3 PO (17:49)
[2016-08-07] MEDS ORDERED: LISI10TA3 PO (17:49)
[2016-08-07] MEDS ORDERED: NALOXONE HCL 0.4 MG/ML AMP IV PRN (18:15)
[2016-08-07] MEDS ORDERED: SODIUM CHLORIDE 0.9% FLUSH 10 ML FLUSH IV FLUSH PRN (18:15)
[2016-08-07] MEDS ORDERED: MAGNESIUM HYDROXIDE SUSP 30 ML CUP PO PRN (18:15)
[2016-08-07] MEDS ORDERED: ONDANSETRON HCL 4 MG/2 ML VIAL IVP PRN (18:15)
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
[2016-08-07] MEDS: SODIUM CHLOR 0.9% 1000 ML INJ 1,000 ML IV SCH (18:38)
[2016-08-07] MEDS ORDERED: ZOLPIDEM TARTRATE 5 MG TAB PO PRN (18:45)
[2016-08-07] MEDS ORDERED: NITROGLYCERIN 0.4 MG SL 25 TABS/BTL SL PRN (19:45)
[2016-08-07] MEDS ORDERED: RESP: ALBUTEROL 2.5 MG/IPRATROPIUM 0.5 MG NEB (PRN) NEB (19:45)
[2016-08-07] MEDS ORDERED: HYDROmorphone HCL PF 2 MG/ML VIAL IV PUSH PRN (20:00)
[2016-08-07] MEDS ORDERED: cloNIDine HCL 0.1 MG TAB PO PRN (20:00)
[2016-08-07] MEDS ORDERED: HYDROmorphone HCL 2 MG TAB PO PRN (20:00)
[2016-08-07 20:28] LABS: AMPHETAMINE, URINE NEG (NEG); BARBITURATES, URINE NEG (NEG); COCAINE, URINE NEG (NEG)
[2016-08-07] MEDS: SODIUM CHLORIDE 0.9% FLUSH 10 ML FLUSH IV FLUSH SCH (21:00)
[2016-08-07] MEDS: INSULIN ASPART SUPPLEMENTAL SCALE SQ SCH (21:00)
[2016-08-07] MEDS: HYDROmorphone HCL PF 2 MG/ML VIAL IV PUSH PRN (21:11)
[2016-08-07] MEDS: ALPRAZolam 1 MG TAB PO PRN (21:22)
[2016-08-07 21:44] LABS: MAGNESIUM 2.2 MG/DL (1.5-2.5)
[2016-08-07 22:00] LABS: TRANSFERRIN IRON PROFILE 214 MG/DL (200-360)
[2016-08-07 22:06] LABS: CREATINE KINASE 64 U/L (39-308)
--- NOTE | 2016-08-07 22:28 | RADRPT ---
EXAM DATE/TIME: 08/07/2016 21:52 [facility] COMPARISON: CT BRAIN W/O CONTRAST, April 25, 2016, 13:50. INDICATIONS : Syncope. Evaluate for cerebrovascular accident. RADIATION DOSE: 48.39 CTDIvol (mGy) MEDICAL HISTORY : Cerebrovascular disease. Cardiovascular disease Hypertension.Diabetes. SURGICAL HISTORY : None. ENCOUNTER: Initial ACUITY: 1 day PAIN SCALE: 8/10 LOCATION: cranial TECHNIQUE: Multiple contiguous axial images were obtained of the head. Using automated exposure control and adj ustment of the mA and/or kV according to patient size, radiation dose was kept as low as reasonably a chievable to obtain optimal diagnostic quality images. FINDINGS: CEREBRUM: The ventricles are normal for age. No evidence of midline shift, mass lesion, hemorrhage or acute in farction. No extra-axial fluid collections are seen. POSTERIOR FOSSA: The cerebellum and brainstem are intact. The 4th ventricle is midline. The cerebellopontine angle i s unremarkable. EXTRACRANIAL: The visualized portion of the orbits is intact. SKULL: The calvaria is intact. No evidence of skull fracture. CONCLUSION: Normal examination for a patient of this age. No significant change has occurred. Andre Hardin MD on August 07, 2016 at 22:25 Board Certified Radiologist. This report was verified electronically.
--- NOTE | 2016-08-07 22:41 | RADRPT ---
EXAM DATE/TIME: 08/07/2016 21:56 [facility] COMPARISON: No previous studies available for comparison. INDICATIONS : Left shoulder fracture. RADIATION DOSE: 25.39 CTDIvol (mGy) MEDICAL HISTORY : Cardiovascular disease. Cerebrovascular disease. Hypertension. SURGICAL HISTORY : None. ENCOUNTER: Initial ACUITY: 1 day PAIN SCALE: 8/10 LOCATION: Left Shoulder. TECHNIQUE: Volumetric scanning of the shoulder was performed. Using automated exposure control and adjustment o f the mA and/or kV according to patient size, radiation dose was kept as low as reasonably achievable to obtain optimal diagnostic quality images. FINDINGS: There is a comminuted proximal humeral fracture involving the posterior aspect of the humeral head an d extending into the humeral neck. There is an acute angular deformity at the fracture site with some foreshortening. The majority of the articular surface of the humeral head is intact and there is no dislocation at the glenohumeral joint. There is a shoulder joint effusion. The surrounding soft tissu e swelling. The clavicle and scapula appear intact. There is previous stent graft placement in the de scending thoracic aorta. Small left effusion. CONCLUSION: 1. Comminuted proximal left humeral fracture as above. Andre Hardin MD on August 07, 2016 at 22:37 Board Certified Radiologist. This report was verified electronically.
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
[2016-08-07] MEDS: LABETALOL HCL 200 MG TAB PO SCH (23:46)
[2016-08-07] MEDS: DOCUSATE SODIUM 50 MG/SENNA 8.6 MG TAB PO SCH (23:46)
[2016-08-07] MEDS: HYDROmorphone HCL 4 MG TAB PO PRN (23:46)
[2016-08-07] MEDS: METOPROLOL TARTRATE 25 MG TAB PO SCH (23:46)
[2016-08-08] MEDS: SODIUM CHLOR 0.9% 1000 ML INJ 1,000 ML IV SCH ×4 (02:45→21:27)
[2016-08-08 03:51] LABS: AUTOMATED NEUTROPHIL # 5.2 TH/MM3 (1.8-7.7); BASOPHIL # 0.1 TH/MM3 (0-0.2); BASOPHIL % 0.6 % (0.0-2.0); EOSINOPHIL # 0.2 TH/MM3 (0-0.4); EOSINOPHIL % 2.2 % (0.0-4.0); HEMATOCRIT 28.6 % (39.0-51.0); HEMO FLAGS DIFF FINAL; LYMPH % 19.1 % (9.0-44.0); LYMPHOCYTE # 1.5 TH/MM3 (1.0-4.8); MEAN CELL VOLUME 87.1 FL (80.0-100.0); MEAN CORPUSCULAR HEMOGLOBIN 28.8 PG (27.0-34.0); MONO % 12.6 % (0.0-8.0); NEUT % 65.5 % (16.0-70.0); PLATELET COUNT 228 TH/MM3 (150-450); RED BLOOD COUNT 3.29 MIL/MM3 (4.50-5.90); RED CELL DISTRIBUTION WIDTH 17.9 % (11.6-17.2); WHITE BLOOD COUNT 7.9 TH/MM3 (4.0-11.0)
[2016-08-08 04:13] LABS: APTT (PATIENT) 26.1 SEC (24.3-30.1); PROTHROMBIN TIME - PATIENT 11.1 SEC (9.8-11.6)
[2016-08-08 04:17] VITALS: BP 132/62; PULSE 65; RESP 17; TEMP 96.9; O2SAT 93
[2016-08-08 04:28] LABS: BICARBONATE 22.8 MEQ/L (21.0-32.0); POTASSIUM 5.4 MEQ/L (3.5-5.1)
[2016-08-08] MEDS: LEVOTHYROXINE SODIUM 25 MCG TAB PO SCH (05:31)
[2016-08-08] MEDS: HYDROmorphone HCL 4 MG TAB PO PRN ×2 (05:31→13:21)
[2016-08-08] MEDS: INSULIN ASPART SUPPLEMENTAL SCALE SQ SCH ×4 (05:38→21:00)
[2016-08-08 08:00] VITALS: BP 139/62; PULSE 69; RESP 16; TEMP 97.6; O2SAT 94
[2016-08-08] MEDS: CALCIUM GLUCONATE 500 MG TAB PO SCH (08:52)
[2016-08-08] MEDS: LABETALOL HCL 200 MG TAB PO SCH ×2 (08:53→21:26)
[2016-08-08] MEDS: METOPROLOL TARTRATE 25 MG TAB PO SCH ×2 (08:53→21:26)
[2016-08-08] MEDS: DOCUSATE SODIUM 50 MG/SENNA 8.6 MG TAB PO SCH ×2 (08:53→21:26)
[2016-08-08] MEDS: CITALOPRAM HYDROBROMIDE 20 MG TAB PO SCH (08:53)
[2016-08-08] MEDS: PRAVASTATIN SOD 80 MG TAB PO SCH (08:53)
[2016-08-08] MEDS: SODIUM CHLORIDE 0.9% FLUSH 10 ML FLUSH IV FLUSH SCH ×2 (08:53→19:42)
[2016-08-08] MEDS ORDERED: CHOLECALCIFEROL (VIT D3) 400 UNIT TAB PO SCH (09:00)
[2016-08-08] MEDS: HYDROmorphone HCL PF 2 MG/ML VIAL IV PUSH PRN ×3 (09:01→19:42)
--- NOTE | 2016-08-08 10:54 | EKG ---
Date Performed: 08/08/2016 Time Performed: 02:48:18 PTAGE: 71 years EKG: Sinus rhythm with borderline 1st degree A-V block Left anterior fascicular block Borderline ECG PREVIOUS TRACING : 08/07/2016 23.10 Compared to prior tracing no significant change DOCTOR: Poncho Orozco Interpretating Date/Time 08/08/2016 10:53:14
--- NOTE | 2016-08-08 11:02 | HHI.FPPN ---
Subjective Remarks Lying in bed. Reports significant pain in his left shoulder area from the fracture. The pain medication helps somewhat, but he states "it is not helping enough". No chest pain or shortness of breath. No abdominal pain. No confusion. No edema. (Otto Mendez MD R2) Objective Vitals Vital Signs Date Time Temp Pulse Resp B/P Pulse Ox O2 Delivery O2 Flow Rate FiO2 08/08/16 08:00 97.6 69 16 139/62 94 08/08/16 06:56 18 08/08/16 04:17 96.9 65 17 132/62 93 08/07/16 23:53 97.4 89 17 140/67 93 08/07/16 23:43 18 08/07/16 19:00 82 16 96 Room Air 08/07/16 19:00 86 16 129/66 97 Room Air 08/07/16 18:39 84 18 175/72 98 08/07/16 16:09 87 18 187/84 95 Room Air 08/07/16 15:14 18 98 Room Air 08/07/16 14:35 77 18 174/74 96 Room Air 08/07/16 14:16 97.4 79 16 155/70 95 I/O 08/07/16 08/07/16 08/07/16 08/08/16 08/08/16 08/08/16 07:00 15:00 23:00 07:00 15:00 23:00 Intake Total 850 ml Output Total 400 ml Balance 450 ml Intake Oral 280 ml IV Total 570 ml Output Urine Total 400 ml (Otto Mendez MD R2) Result Diagram: 08/08/16 0339 08/08/16 0339 Imaging Last 72 hours Impressions Shoulder X-Ray 08/07/16 1442 Signed Impressions: Service Date/Time: Sunday, August 07, 2016 15:53 - CONCLUSION: Fracture through the surgical neck of the proximal humerus. Michael Joel MD Chest X-Ray 08/07/16 1442 Signed Impressions: Service Date/Time: Sunday, August 07, 2016 16:02 - CONCLUSION: Mild left base parenchymal opacity and stable interstitial prominence Munir Quintero MD Upper Extremity CT 08/07/16 0000 Signed Impressions: Service Date/Time: Sunday, August 07, 2016 21:56 - CONCLUSION: 1. Comminuted proximal left humeral fracture as above. Andre Hardin MD Humerus X-Ray 08/07/16 0000 Signed Impressions: Service Date/Time: Sunday, August 07, 2016 15:54 - CONCLUSION: Fracture through the surgical neck of the proximal left humerus. Michael Joel MD Head CT 08/07/16 0000 Signed Impressions: Service Date/Time: Sunday, August 07, 2016 21:52 - CONCLUSION: Normal examination for a patient of this age. No significant change has occurred. Andre Hardin MD Brain MRI 08/07/16 0000 Signed Impressions: Service Date/Time: Sunday, August 07, 2016 22:10 - CONCLUSION: 1. Remote lacunar infarct right basal ganglia. Mild white matter ischemic changes. No acute infarct. Andre Hardin MD Objective Remarks GENERAL: Lying in bed, left arm sling in place SKIN: Area of previous sacral ulcer not examined 2/2 patient pain/discomfort. It was a stage 1 ulcer at recent visit in the clinic. Bruising over left abdomen. Abrasion over left knee and right forearm with dried blood. Dressing in place HEAD: Normocephalic and atraumatic. NECK: Endarterectomy scar on right. No thyromegaly. EYES: Stye over right upper eyelid. No scleral icterus. No conjunctival injection or drainage. EOMI. ENT: No nasal drainage noted. Mucous membranes moist and pink. Dentures present. CARDIOVASCULAR: Regular rate and rhythm. No murmurs, rubs, or gallops. +1 peripheral pulses. RESPIRATORY: Lungs clear to auscultation bilaterally. GASTROINTESTINAL: Soft, non-tender, nondistended. Normal bowel sounds. No masses. EXTREMITIES: No edema. Multiple surgical scars on right forearm and wrist. Right second digit in contracture. Difficulty extending digits. Limited mobility of upper extremities. Dorsalis pedis and posterior tibial arteries have +1 pulses. NEUROLOGICAL: Awake and alert. CN intact. UE right 3/5, UE left not examined, LE right 4/5, LE left 4/5. Sensation intact throughout.Charge Loader strength is 4/5. He has significant trigger finger on right side. PSYCH: Appropriate mood and affect. (Otto Mendez MD R2) A/P Assessment and Plan 71 year old male with complicated medical history admitted after mechanical fall. Discovered to have left humeral surgical neck that is comminuted. Orthopedic surgery is on board. Cardiology is consulted due to complicated vascular history, input appreciated before surgical intervention regarding risks. Discharge Planning Pending management of left humeral neck fracture. Will require rehabilitation, and may benefit from an assisted living facility due to decreasing functional status, increasing falls at home, increasing weakness and difficulty getting around. (Otto Mendez MD R2) Attending Attestation Patient seen and examined, discussed with resident team. I agree with assessment and management as documented and discussed with me. The patient has been seen and examined. The chart and all resident notes have been reviewed. I agree that inpatient care is appropriate and that a two midnight stay is expected for the reasons documented in the resident history and physical. I have discussed this with the resident and certify the resident s order for inpatient admission. 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 He is on dual antiplatelet therapy for his recent vascular procedure. He reports significant weakness and weight loss, which he reports is secondary to decreased appetite. He is essentially only taking in glucerna shakes. During his evaluation, he was found to have a troponin of 0.17. In anticipation of potential orthopedic surgery, cardiology consult was placed to determine his perioperative safety (although now nonoperative management of fracture is planned) as well as to determine safety of dual antiplatelet therapy in light of frequent falls and recent fracture. ROS: No chest pain, no palpitations, no SOB. He reports + left shoulder pain. + weight loss. All other systems reviewed are negative. PMH/PSxH/SocHx/FamHx: Per resident H&P. Significant for: endograft of aorta, DM II, HTN, sleep apnea, hyperlipidemia. 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 Also, Right Carotid endarterectomy. Brother with [place] at 30 yo. 50 pack year tobacco history. Lives alone. Appreciate ortho - nonoperative management has been selected by patient. Await eval by PT to determine patient safety / disposition. Anticipate he may benefit from rehab placement. Await cardiology evaluation, given his complicated medical history. (Yasmin Taylor MD) Problem List: (1) Left humeral fracture Status: Acute Plan: Left humeral surgical neck fracture that is comminuted. Revised cardiac risk index score of 3, representing 11% risk of major event. ACS r/o, as below. Per family, most recent stress test was before aortic stent surgery on 05/2016. Stent placement for recent aortic ulcer. He has a history of prior [place] and CVA and is a lifelong smoker. Vitamin D level is low, 25. - Orthopedic surgery consulted. - Cardiology consulted for cardiac risk assessment before surgery. - Neuro and pulse checks q4hrs to rule out compartment syndrome. - Pain management: Dilaudid 2 mg PO for pain 5-6, 4 mg PO for pain 7 to 8, 1 mg IV for pain 9-10 - Vitamin D 400U and calcium 1000 mg supplementation. - Would benefit from DEXA scan as outpatient. - Incentive spirometry and acapella (2) Fall Status: Acute Plan: Significant history of weakness, arthritic joint pain, history of CVA's with residual deficits. Also with recent weight loss after hospital admission. CT head and MRI brain negative. Troponin initially elevated, repeat lower, EKG' s relatively normal. RF is elevated, CCP and LEFTY are pending. May be rheumatology component of symptoms. Etiology is therefore multifactorial, including deconditioning, poor nutrition status, arthritic joint pains that are severe, residual deficits from CVA's. - Physical therapy - Will need rehab as an outpatient - May benefit from [facility]/SNF on discharge, have dialogue with patient. (3) Weakness Status: Acute Plan: See above for management of fall. (4) Anemia Status: Chronic Plan: Chronic anemia. May be of chronic disease. Could also be part of rheumatoid arthritis. - Workup for RA is pending. - Check iron studies. - Checking hemoccult (5) Hyperkalemia Status: Acute Plan: Improving. 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 CXR shows endograft in stable position. 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 ACS workup negative. - Cont home metoprolol - Continue statin - Holding aspirin/plavix in anticipation of procedure (8) Hordeolum of right upper eyelid Status: Acute Plan: No evidence of conjunctivitis or preseptal cellulitis. Will use warm compress. (9) Diabetes mellitus, type 2 Status: Chronic Plan: Decreased PO intake recently. ? low blood sugar levels causing weakness. Will keep on ss only for tonight. (10) Hypothyroidism Status: Chronic Plan: TSH normal. - Cont levothyroxine. (11) HTN (hypertension) Status: Chronic Plan: - Cont home metoprolol and lisinopril. - PRN clonidine (12) DEAN (obstructive sleep apnea) Status: Chronic Plan: Chronic issue. -BiPAP at night (13) Nutrition, metabolism, and development symptoms Status: Acute Plan: Fluids: NS at 125 MLS/hr Diet: diabetic diet for now. DVT ppx: holding dual-antiplatelet therapy and anticoagulation for possible procedure. Will use SCDs. Will consider lovenox v heparin if not scheduled for surgery. He is at high risk of DVT with decreased mobility. (Otto Mendez MD R2) Problem Qualifiers (1) Left humeral fracture: Qualified Code: S42.202A - Closed fracture of proximal end of left humerus, unspecified fracture morphology, initial encounter (2) Fall: Qualified Code: W19.XXXA - Fall, initial encounter (3) Anemia: Qualified Code: D64.9 - Anemia, unspecified type (4) CAD (coronary artery disease): Qualified Code: I25.10 - Coronary artery disease involving [place] coronary artery of [place] heart without angina pectoris (5) Hordeolum of right upper eyelid: Qualified Code: H00.011 - Hordeolum of right upper eyelid, unspecified hordeolum type (6) Diabetes mellitus, type 2: Qualified Code: E11.9 - Type 2 diabetes mellitus without complication, with long-term current use of insulin Otto Mendez MD R2 Aug 08, 2016 11:02 Yasmin Taylor MD Aug 08, 2016 21:21
[2016-08-08 12:00] VITALS: BP 137/67; PULSE 71; RESP 18; TEMP 97.2; O2SAT 94
--- NOTE | 2016-08-08 12:51 | EKG ---
Date Performed: 08/07/2016 Time Performed: 23:10:04 PTAGE: 71 years EKG: Sinus rhythm with PAC(s) Short NM interval Left anterior fascicular block Borderline ECG PREVIOUS TRACING : 08/07/2016 16.05 Compared to prior tracing no significant change DOCTOR: Poncho Orozco Interpretating Date/Time 08/08/2016 12:49:47
--- NOTE | 2016-08-08 13:07 | MB ---
cc: EDER IRVIN DATE OF ADMISSION 08/07/2016 DATE OF CONSULTATION 08/08/2016 REASON FOR CONSULTATION Left proximal humerus fracture. CONSULTING PHYSICIAN Dr. No Miller KATLYN Loza is a 71-year male who has history of multiple medical problems. He was at home and when he got up to walk he felt that his legs gave way. He fell and landed on his left shoulder. He did hit his head. He denies any dizziness, syncope or loss of consciousness. He has a history of a CVA. He is also a type 2 diabetic. He complains of left shoulder pain. The pain is worse with movement. X-rays in the emergency room revealed a mildly comminuted, mildly displaced left proximal humerus fracture. He is currently awake and alert on the seventh floor. PAST MEDICAL HISTORY ILLNESSES 1. Hypertension. 2. Hypercholesterolemia. 3. Coronary artery disease. 4. History of CVA. 5. Hypothyroidism. 6. Anxiety. 7. Diabetes. 8. Aortic aneurysm. SURGERIES 1. Right CEA. 2. Multiple right arm surgeries. 3. Right knee surgery. 4. An aortic endovascular graft. MEDICATIONS Please see EMR for complete list of inpatient medications. This was reviewed. ALLERGIES TRAMADOL. FAMILY HISTORY Positive for cancer in his mother, throat cancer in his brother. He has three healthy children. SOCIAL HISTORY The patient lives in [place]. He denies alcohol or drug use. He does smoke a pack a day. REVIEW OF SYSTEMS The patient denies headache, visual changes, neck pain, chest pain, shortness of breath, abdominal pain, nausea, vomiting or recent weight loss. He complains of left shoulder pain; the pain is worse with movement. PHYSICAL EXAMINATION GENERAL: The patient is a well-developed, well-nourished 71-year male in no acute distress. He is awake and alert. He is alert and oriented x 3. VITAL SIGNS: Temperature 97.6, pulse 69, respirations 16, blood pressure 139/62, O2 sat 94% on room air. HEAD: The patient is normocephalic. Pupils are equal. NECK: Soft, nontender. Trachea midline. ABDOMEN: Soft, nontender, nondistended. EXTREMITIES: Examination of the left arm reveals some swelling and bruising around the left shoulder. He has pain with any shoulder motion. He has no pain with elbow, wrist or finger motion. Sensation is intact in all fingers. Radial pulses palpable. Examination of right arm reveals no significant pain with shoulder, elbow or wrist motion. Skin is intact. He has well-healed incisions from previous surgeries. Examination of bilateral lower extremities reveals no obvious pain or deformity with hip, knee or ankle motion. Sensation is intact to both feet. Skin is intact to both feet. IMAGING STUDIES X-rays and CT scan of the left shoulder were reviewed. X-rays reveal a mildly comminuted, mildly displaced left proximal humerus fracture. There is some rotational deformity present. IMPRESSION 1. Diabetes 2. History or aortic aneurysm. 3. Hypertension. 4. Left proximal humerus fracture. PLAN The treatment options were discussed with the patient. At this point I discussed surgical and nonsurgical options. I discussed the risks of surgery to include bleeding, infection, injury to arteries, nerves and blood vessels, nonunion, malunion, painful hardware, avascular necrosis, need for shoulder replacement as well as medical complications including blood clot, stroke, heart attack and . I also discussed with him nonoperative treatment. He would like to proceed with nonoperative treatment at this time. The fracture is relatively well-aligned. I would expect that he would have reasonable function if the fracture heals in its current position. All questions were answered. He will need followup in the office 1-2 weeks for repeat x-rays and exam. A mid-level provider in my office, nurse practitioner or PA, may see this patient on a follow-up basis and continue to implement the objective of this plan including: Starting or adjusting medications, injections of muscle, tendon, bursa or joints, cast application, orthotic or brace application, physical therapy, further radiographic studies including x-ray, MRI, CT, ultrasounds or bone scan, vascular studies, neurologic studies, or other specialist consultations, and proceeding with surgical management as appropriate. MD ERIC Nunez/JETT 11:55 AM 12:50 PM
--- NOTE | 2016-08-08 13:08 | EKG ---
Date Performed: 08/07/2016 Time Performed: 16:05:18 PTAGE: 71 years EKG: Sinus rhythm PATTERN CONSISTENT WITH PULMONARY DISEASE LEFT ANTERIOR FASCICULAR BLOCK PROBABLE SEPTAL MYOCARDIAL INFARCTION ABNORMAL ECG INTERPRETATION BASED ON A DEFAULT AGE OF 42 YEARS PREVIOUS TRACING : 04/26/2016 07.25 Compared to prior tracing no significant change DOCTOR: Poncho Orozco Interpretating Date/Time 08/08/2016 13:07:44
[2016-08-08] MEDS: ALPRAZolam 1 MG TAB PO PRN (14:46)
[2016-08-08 14:49] LABS: BICARBONATE 23.9 MEQ/L (21.0-32.0); POTASSIUM 5.2 MEQ/L (3.5-5.1)
[2016-08-08 16:00] VITALS: BP 145/65; PULSE 72; RESP 17; TEMP 98.3; O2SAT 93
[2016-08-08] MEDS: CLOPIDOGREL 75 MG TAB PO SCH (16:00)
[2016-08-08] MEDS: ASPIRIN EC 81 MG TABEC PO SCH (16:00)
[2016-08-08 20:00] VITALS: BP 164/71; PULSE 69; PULSE 74; RESP 20; TEMP 97.2; O2SAT 93
[2016-08-08 21:42] VITALS: O2SAT 95
[2016-08-09] VITALS (8 sets, daily range): BP systolic 125–145; BP diastolic 54–66; PULSE 63–76; RESP 16–20; TEMP 96.1–97.9; O2SAT 91–97
[2016-08-09] MEDS: HYDROmorphone HCL PF 2 MG/ML VIAL IV PUSH PRN ×4 (00:50→21:59)
[2016-08-09 05:22] LABS: HEMATOCRIT 26.3 % (39.0-51.0); REVIEW FLAG FINAL
[2016-08-09] MEDS: LEVOTHYROXINE SODIUM 25 MCG TAB PO SCH (05:40)
[2016-08-09] MEDS: ALPRAZolam 1 MG TAB PO PRN (05:40)
[2016-08-09 05:53] LABS: BICARBONATE 22.8 MEQ/L (21.0-32.0); POTASSIUM 4.8 MEQ/L (3.5-5.1)
[2016-08-09] MEDS: INSULIN ASPART SUPPLEMENTAL SCALE SQ SCH ×4 (05:55→20:54)
[2016-08-09] MEDS: DOCUSATE SODIUM 50 MG/SENNA 8.6 MG TAB PO SCH ×2 (10:16→20:39)
[2016-08-09] MEDS: LABETALOL HCL 200 MG TAB PO SCH ×2 (10:16→20:39)
[2016-08-09] MEDS: CITALOPRAM HYDROBROMIDE 20 MG TAB PO SCH (10:16)
[2016-08-09] MEDS: METOPROLOL TARTRATE 25 MG TAB PO SCH ×2 (10:16→20:39)
[2016-08-09] MEDS: CLOPIDOGREL 75 MG TAB PO SCH (10:16)
[2016-08-09] MEDS: CALCIUM GLUCONATE 500 MG TAB PO SCH (10:16)
[2016-08-09] MEDS: ASPIRIN EC 81 MG TABEC PO SCH (10:16)
[2016-08-09] MEDS: CHOLECALCIFEROL (VIT D3) 400 UNIT TAB PO SCH (10:17)
[2016-08-09] MEDS: SODIUM CHLOR 0.9% 1000 ML INJ 1,000 ML IV SCH ×3 (10:17→23:45)
[2016-08-09] MEDS: PRAVASTATIN SOD 80 MG TAB PO SCH (10:17)
[2016-08-09] MEDS: SODIUM CHLORIDE 0.9% FLUSH 10 ML FLUSH IV FLUSH SCH ×2 (10:18→20:54)
[2016-08-09] MEDS: oxyCODONE/ACETAMINOPHEN 7.5 MG/325 MG TAB PO SCH ×4 (11:49→23:44)
--- NOTE | 2016-08-09 14:24 | HHI.FPPN ---
Subjective Remarks No acute events overnight. Had PT this morning and is in persistent pain of his shoulder from the PT. Otherwise doing well with no CP/SOB. No N/V, abdominal pain. (Eduardo Garcia MD R1) Objective Vitals Vital Signs Date Time Temp Pulse Resp B/P Pulse Ox O2 Delivery O2 Flow Rate FiO2 08/09/16 12:00 97.0 63 16 125/54 95 08/09/16 10:00 94 08/09/16 08:00 96.6 69 16 127/57 91 08/09/16 04:00 97.2 68 20 126/59 93 08/09/16 00:00 97.9 76 20 145/66 93 08/08/16 21:42 95 21 08/08/16 20:00 97.2 69 20 164/71 93 08/08/16 20:00 74 08/08/16 16:00 98.3 72 17 145/65 93 I/O 08/08/16 08/08/16 08/08/16 08/09/16 08/09/16 08/09/16 07:00 15:00 23:00 07:00 15:00 23:00 Intake Total 850 ml 1114 ml 1091 ml 1003 ml Output Total 400 ml 300 ml 650 ml 850 ml Balance 450 ml 814 ml 441 ml 153 ml Intake Oral 280 ml 240 ml 320 ml 240 ml IV Total 570 ml 874 ml 771 ml 763 ml Output Urine Total 400 ml 300 ml 650 ml 850 ml # Bowel Movements 0 0 0 (Eduardo Garcia MD R1) Result Diagram: 08/09/16 0433 08/09/16 0433 Imaging Last Impressions Shoulder X-Ray 08/07/16 1442 Signed Impressions: Service Date/Time: Sunday, August 07, 2016 15:53 - CONCLUSION: Fracture through the surgical neck of the proximal humerus. Michael Joel MD Chest X-Ray 08/07/16 1442 Signed Impressions: Service Date/Time: Sunday, August 07, 2016 16:02 - CONCLUSION: Mild left base parenchymal opacity and stable interstitial prominence Munir Quintero MD Upper Extremity CT 08/07/16 0000 Signed Impressions: Service Date/Time: Sunday, August 07, 2016 21:56 - CONCLUSION: 1. Comminuted proximal left humeral fracture as above. Andre Hardin MD Humerus X-Ray 08/07/16 0000 Signed Impressions: Service Date/Time: Sunday, August 07, 2016 15:54 - CONCLUSION: Fracture through the surgical neck of the proximal left humerus. Michael Joel MD Head CT 08/07/16 0000 Signed Impressions: Service Date/Time: Sunday, August 07, 2016 21:52 - CONCLUSION: Normal examination for a patient of this age. No significant change has occurred. Andre Hardin MD Brain MRI 08/07/16 0000 Signed Impressions: Service Date/Time: Sunday, August 07, 2016 22:10 - CONCLUSION: 1. Remote lacunar infarct right basal ganglia. Mild white matter ischemic changes. No acute infarct. Andre Hardin MD Objective Remarks GENERAL: Lying in bed appearing in pain but NAD. SKIN: Area of previous sacral ulcer not examined 2/2 patient pain/discomfort. It was a stage 1 ulcer at recent visit in the clinic. Bruising over left abdomen. Abrasion over left knee and right forearm with dried blood. Dressing in place EYES: Stye over right upper eyelid. No scleral icterus. No conjunctival injection or drainage. EOMI. CARDIOVASCULAR: Regular rate and rhythm. No murmurs RESPIRATORY: Lungs clear to auscultation bilaterally. EXTREMITIES: No edema. Multiple surgical scars on right forearm and wrist. Right second digit in contracture. Difficulty extending digits. Limited mobility of upper extremities. Dorsalis pedis and posterior tibial arteries have +1 pulses. NEUROLOGICAL: Awake and alert. Grossly nonfocal. Medications and IVs Current Medications Medications (Trade) Dose Ordered Sig/Josefa Route Start Time Stop Time Status Last Admin (NS 1000 ml Inj) 1,000 ml @ 125 mls/hr Q8H IV 08/07/16 18:07 08/09/16 10:17 (NS Flush) 2 ml UNSCH PRN IV FLUSH 08/07/16 18:15 (NS Flush) 2 ml BID IV FLUSH 08/07/16 21:00 08/09/16 10:18 (Zofran Inj) 4 mg Q6H PRN IVP 08/07/16 18:15 (Milk Of Magnesia Liq) 30 ml Q12H PRN PO 08/07/16 18:15 (Narcan Inj) 0.4 mg UNSCH PRN IV 08/07/16 18:15 (Xanax) 1 mg Q8H PRN PO 08/07/16 18:45 08/09/16 05:40 (CeleXA) 20 mg DAILY PO 08/08/16 09:00 08/09/16 10:16 (Trandate) 200 mg Q12HR PO 08/07/16 21:00 08/09/16 10:16 (Synthroid) 25 mcg DAILY@06 PO 08/08/16 06:00 08/09/16 05:40 (Lopressor) 25 mg BID PO 08/07/16 21:00 08/09/16 10:16 (Pravachol) 80 mg DAILY PO 08/08/16 09:00 08/09/16 10:17 (Isa-Colace) 1 tab BID PO 08/07/16 21:00 08/09/16 10:16 (Ambien) 5 mg HS PRN PO 08/07/16 18:45 (Nitrostat Sl) 0.4 mg Q5M PRN SL 08/07/16 19:45 (Catapres) 0.1 mg Q6H PRN PO 08/07/16 20:00 (Dilaudid Pf Inj) 1 mg Q4H PRN IV PUSH 08/08/16 00:00 08/09/16 10:16 (Calcium Gluconate) 1,000 mg DAILY PO 08/08/16 09:00 08/09/16 10:16 (Vitamin D3) 2,000 units DAILY PO 08/09/16 09:00 08/09/16 10:17 (Ecotrin Ec) 81 mg DAILY PO 08/08/16 15:00 08/09/16 10:16 (Plavix) 75 mg DAILY PO 08/08/16 15:00 08/09/16 10:16 (Percocet 7.5-325 Mg) 1 tab Q4HR PO 08/09/16 12:00 08/09/16 11:49 (Eduardo Garcia MD R1) A/P Assessment and Plan 71 year old male with complicated medical history admitted after mechanical fall. Discovered to have left humeral surgical neck that is comminuted. Orthopedic surgery is on board. Cardiology is consulted due to complicated vascular history, input appreciated before surgical intervention regarding risks. Discharge Planning To rehab 4/8 (Eduardo Garcia MD R1) Attending Attestation Patient seen, examined, and discussed with resident team. I agree with assessment and management as documented and discussed with me. Pt complains of left shoulder pain worse after PT. He is accepting of going to rehab at discharge. Case management has been consulted. (Yasmin Taylor MD) Problem List: (1) Left humeral fracture Status: Acute Plan: Left humeral surgical neck fracture that is comminuted. Revised cardiac risk index score of 3, representing 11% risk of major event. ACS r/o, as below. Per family, most recent stress test was before aortic stent surgery on 05/2016. Stent placement for recent aortic ulcer. He has a history of prior CA and CVA and is a lifelong smoker. Vitamin D level is low, 25. - Orthopedic surgery consulted, appreciate recs - non-operative management; will need PT/OT with outpatient follow up - Cardiology consulted for recs regarding inpatient versus outpatient stress testing (pending) - Neuro and pulse checks q4hrs to rule out compartment syndrome. - Pain management: Percocet 7.5 Q4H scheduled, Dilaudid 1 mg IV for breakthrough - Vitamin D 2000U and calcium 1000 mg supplementation. - Would benefit from DEXA scan as outpatient - Incentive spirometry and acapella (2) Fall Status: Acute Plan: Significant history of weakness, arthritic joint pain, history of CVA's with residual deficits. Also with recent weight loss after hospital admission. CT head and MRI brain negative. Troponin initially elevated, repeat lower, EKG' s relatively normal. RF is elevated, CCP and LEFTY are pending. May be rheumatology component of symptoms. Etiology is therefore multifactorial, including deconditioning, poor nutrition status, arthritic joint pains that are severe, residual deficits from CVA's. - Physical therapy recommending inpatient rehab - Pain as above (3) Weakness Status: Acute Plan: See above for management of fall. (4) Anemia Status: Chronic Plan: Chronic anemia. May be of chronic disease. Could also be part of rheumatoid arthritis. - Workup for RA is pending. - Checking hemoccult (5) Hyperkalemia Status: Acute Plan: Improving, continue to monitor (6) Penetrating atherosclerotic ulcer of aorta Status: Chronic Plan: s/p TEVAR. CXR shows endograft in stable position. - Requires good blood pressure control - Chief Recordist on smoking cessation (7) CAD (coronary artery disease) Status: Chronic Plan: No complaint of CP and EKG's show no acute change. ACS workup negative. - Cont home metoprolol - Continue statin - Holding aspirin/plavix in anticipation of procedure (8) Hordeolum of right upper eyelid Status: Acute Plan: No evidence of conjunctivitis or preseptal cellulitis. Will use warm compress. (9) Diabetes mellitus, type 2 Status: Chronic Plan: Decreased PO intake recently. Will keep on SSI only, following bedside glucose. (10) Hypothyroidism Status: Chronic Plan: TSH normal. - Cont levothyroxine. (11) HTN (hypertension) Status: Chronic Plan: - Cont home metoprolol and lisinopril. - PRN clonidine (12) DEAN (obstructive sleep apnea) Status: Chronic Plan: Chronic issue. -BiPAP at night (13) Nutrition, metabolism, and development symptoms Status: Acute Plan: Fluids: NS at 125 MLS/hr due to decreased PO intake Diet: diabetic diet, supplement mighty milk sugar free DVT ppx: On ASA/Plavix. SCDs. Consider pharmacologic prophylaxis now that he is not going for surgery sdw Dr. Taylor (Eduardo Garcia MD R1) Problem Qualifiers (1) Left humeral fracture: Qualified Code: S42.202A - Closed fracture of proximal end of left humerus, unspecified fracture morphology, initial encounter (2) Fall: Qualified Code: W19.XXXA - Fall, initial encounter (3) Anemia: Qualified Code: D64.9 - Anemia, unspecified type (4) CAD (coronary artery disease): Qualified Code: I25.10 - Coronary artery disease involving [place] coronary artery of [place] heart without angina pectoris (5) Hordeolum of right upper eyelid: Qualified Code: H00.011 - [place]de[place]um of right upper eyelid, unspecified hordeolum type (6) Diabetes mellitus, type 2: Qualified Code: E11.9 - Type 2 diabetes mellitus without complication, with long-term current use of insulin Eduardo Garcia MD R1 Aug 09, 2016 14:24 Yasmin Taylor MD Aug 09, 2016 20:31
[2016-08-10] VITALS: BP 112/55; PULSE 62; RESP 18; TEMP 96.3; O2SAT 94
[2016-08-10] MEDS: HYDROmorphone HCL PF 2 MG/ML VIAL IV PUSH PRN ×3 (03:13→14:26)
[2016-08-10 04:00] VITALS: BP 143/65; PULSE 65; RESP 18; TEMP 96.5; O2SAT 95
[2016-08-10] MEDS: LEVOTHYROXINE SODIUM 25 MCG TAB PO SCH (05:22)
[2016-08-10] MEDS: INSULIN ASPART SUPPLEMENTAL SCALE SQ SCH ×2 (05:22→10:48)
[2016-08-10] MEDS: oxyCODONE/ACETAMINOPHEN 7.5 MG/325 MG TAB PO SCH ×3 (05:22→12:25)
[2016-08-10 06:03] LABS: HEMATOCRIT 25.6 % (39.0-51.0); REVIEW FLAG FINAL
[2016-08-10 06:29] LABS: BICARBONATE 21.7 MEQ/L (21.0-32.0); POTASSIUM 4.6 MEQ/L (3.5-5.1)
[2016-08-10 08:00] VITALS: BP 141/60; PULSE 59; RESP 18; TEMP 96.4; O2SAT 92
[2016-08-10] MEDS ORDERED: ENOXAPARIN SODIUM 40 MG/0.4 ML SYRINGE SQ SCH (09:00)
[2016-08-10] MEDS: SODIUM CHLORIDE 0.9% FLUSH 10 ML FLUSH IV FLUSH SCH (09:00)
[2016-08-10] MEDS: CITALOPRAM HYDROBROMIDE 20 MG TAB PO SCH (09:24)
[2016-08-10] MEDS: CALCIUM GLUCONATE 500 MG TAB PO SCH (09:24)
[2016-08-10] MEDS: ASPIRIN EC 81 MG TABEC PO SCH (09:25)
[2016-08-10] MEDS: LABETALOL HCL 200 MG TAB PO SCH (09:25)
[2016-08-10] MEDS: METOPROLOL TARTRATE 25 MG TAB PO SCH (09:26)
[2016-08-10] MEDS: PRAVASTATIN SOD 80 MG TAB PO SCH (09:26)
[2016-08-10] MEDS: CHOLECALCIFEROL (VIT D3) 400 UNIT TAB PO SCH (09:26)
[2016-08-10] MEDS: DOCUSATE SODIUM 50 MG/SENNA 8.6 MG TAB PO SCH (09:26)
[2016-08-10] MEDS: CLOPIDOGREL 75 MG TAB PO SCH (09:26)
--- NOTE | 2016-08-10 09:39 | PD.ORT.PN ---
Subjective Subjective Remarks pain in L shoulder region. Objective Vitals Vital Signs Date Time Temp Pulse Resp B/P Pulse Ox O2 Delivery O2 Flow Rate FiO2 08/10/16 04:00 96.5 65 18 143/65 95 08/10/16 00:00 96.3 62 18 112/55 94 08/09/16 21:53 71 08/09/16 20:00 96.8 70 20 136/64 94 08/09/16 16:00 96.1 69 16 134/60 97 08/09/16 16:00 96.1 69 16 134/60 97 08/09/16 12:00 97.0 63 16 125/54 95 08/09/16 10:00 94 I/O 08/09/16 08/09/16 08/09/16 08/10/16 08/10/16 08/10/16 07:00 15:00 23:00 07:00 15:00 23:00 Intake Total 1003 ml 240 ml 1025 ml 1098 ml Output Total 850 ml 700 ml 650 ml 450 ml Balance 153 ml -460 ml 375 ml 648 ml Intake Oral 240 ml 240 ml 320 ml 240 ml IV Total 763 ml 705 ml 858 ml Output Urine Total 850 ml 700 ml 650 ml 450 ml # Bowel Movements 0 0 0 0 Result Diagram: 08/10/1651108/10/16511 Objective Remarks in bed, nad sling LUE mild swelling L shoulder NVI, sensation intact radial pulse palpable tag maker strength appropriate Assessment & Plan Assessment and Plan s/p L proximal humerus fx NWB sling no ROM of shoulder as of yet ortho stable f/up dr. kauffman 1-2 weeks Pj Durbin Aug 10, 2016 09:39
[2016-08-10] MEDS ORDERED: HYDR2TAB PO (10:23)
[2016-08-10] MEDS ORDERED: VITD400 PO (10:23)
[2016-08-10] MEDS ORDERED: CALG500 PO (10:23)
[2016-08-10] MEDS ORDERED: OXYC1TAB35 PO (10:23)
--- NOTE | 2016-08-10 10:25 | HHI.DCPOC ---
Discharge Care Plan Diagnosis: (1) Limb weakness (2) COPD (chronic obstructive pulmonary disease) (3) Weight loss (4) Fx humeral neck (5) Tobacco abuse Goals to Promote Your Health * To prevent worsening of your condition and complications * To maintain your health at the optimal level Directions to Meet Your Goals Take your medications as prescribed Follow your dietary instruction Follow activity as directed Keep your appointments as scheduled Take your immunizations and boosters as scheduled If your symptoms worsen call your PCP, if no PCP go to Urgent Care Center or Emergency Room Smoking is Dangerous to Your Health. Avoid second hand smoke Call the 24-hour hour crisis hotline for domestic abuse at Otto Mendez MD R2 Aug 10, 2016 10:25
[2016-08-10] MEDS: SODIUM CHLOR 0.9% 1000 ML INJ 1,000 ML IV SCH (10:32)
[2016-08-10 11:47] LABS: HEMATOCRIT 25.7 % (39.0-51.0); REVIEW FLAG FINAL
[2016-08-10 12:00] VITALS: BP 124/56; PULSE 60; RESP 16; TEMP 97.2; O2SAT 96
[2016-08-10] MEDS: ALPRAZolam 1 MG TAB PO PRN (12:51)
--- NOTE | 2016-08-10 13:48 | HHI.FPPN ---
Subjective Remarks No acute events. Continuing to have significant pain in left shoulder. Improved somewhat with pain medication. No other issues reported this morning. He is resting in bed. (Otto Mendez MD R2) Objective Vitals Vital Signs Date Time Temp Pulse Resp B/P Pulse Ox O2 Delivery O2 Flow Rate FiO2 08/10/16 12:00 97.2 60 16 124/56 96 08/10/16 08:00 96.4 59 18 141/60 92 08/10/16 04:00 96.5 65 18 143/65 95 08/10/16 00:00 96.3 62 18 112/55 94 08/09/16 21:53 71 08/09/16 20:00 96.8 70 20 136/64 94 08/09/16 16:00 96.1 69 16 134/60 97 08/09/16 16:00 96.1 69 16 134/60 97 I/O 08/09/16 08/09/16 08/09/16 08/10/16 08/10/16 08/10/16 07:00 15:00 23:00 07:00 15:00 23:00 Intake Total 1003 ml 240 ml 1025 ml 1098 ml Output Total 850 ml 700 ml 650 ml 450 ml Balance 153 ml -460 ml 375 ml 648 ml Intake Oral 240 ml 240 ml 320 ml 240 ml IV Total 763 ml 705 ml 858 ml Output Urine Total 850 ml 700 ml 650 ml 450 ml # Bowel Movements 0 0 0 0 (Otto Mendez MD R2) Result Diagram: 08/10/16 1117 08/10/16 0512 Imaging Last 72 hours Impressions Shoulder X-Ray 08/07/16 1442 Signed Impressions: Service Date/Time: Sunday, August 07, 2016 15:53 - CONCLUSION: Fracture through the surgical neck of the proximal humerus. Michael Joel MD Chest X-Ray 08/07/16 1442 Signed Impressions: Service Date/Time: Sunday, August 07, 2016 16:02 - CONCLUSION: Mild left base parenchymal opacity and stable interstitial prominence Munir Quintero MD Objective Remarks GENERAL: Lying in bed, comfortable SKIN: Area of previous sacral ulcer not examined 2/2 patient pain/discomfort. It was a stage 1 ulcer at recent visit in the clinic. Bruising over left abdomen. Abrasion over left knee and right forearm with dried blood. Dressing in place EYES: Stye over right upper eyelid. No scleral icterus. No conjunctival injection or drainage. EOMI. CARDIOVASCULAR: Regular rate and rhythm. No murmurs RESPIRATORY: Lungs clear to auscultation bilaterally. EXTREMITIES: No edema. Multiple surgical scars on right forearm and wrist. Right second digit in contracture. Difficulty extending digits. Limited mobility of upper extremities. Dorsalis pedis and posterior tibial arteries have +1 pulses. NEUROLOGICAL: Awake and alert. Grossly nonfocal. (Otto Mendez MD R2) A/P Assessment and Plan 71 year old male with complicated medical history admitted after mechanical fall. Discovered to have left humeral surgical neck that is comminuted. Orthopedic surgery is on board, recommending non-surgical treatment as fracture is relatively well aligned. Discharge Planning To inpatient rehab today (Otto Mendez MD R2) Attending Attestation Patient seen and examined, discussed with resident team. I agree with assessment and management as documented and discussed with me. Pt is stable. Pain is under better control Discharge to SNF today. (Yasmin Taylor MD) Problem List: (1) Left humeral fracture Status: Acute Plan: Left humeral surgical neck fracture that is comminuted. Revised cardiac risk index score of 3, representing 11% risk of major event. Per family, most recent stress test was before aortic stent surgery on 05/2016. Stent placement for recent aortic ulcer. He has a history of prior NE and CVA and is a lifelong smoker. Vitamin D level is low, 25. Opting for non-surgical treatment at this time as fracture is relatively well aligned and has decent potential to heal with acceptable functionality. - Orthopedic surgery consulted, appreciate recs - non-operative management; will need PT/OT with outpatient follow up - Pain management: Percocet 7.5 Q4H scheduled, Dilaudid 1 mg IV for breakthrough - Vitamin D 2000U and calcium 1000 mg supplementation. - Inpatient rehab on discharge - Would benefit from DEXA scan as outpatient - Incentive spirometry and acapella (2) Fall Status: Acute Plan: Significant history of weakness, arthritic joint pain, history of CVA's with residual deficits. Also with recent weight loss after hospital admission. CT head and MRI brain negative. Troponin initially elevated, repeat lower, EKG' s relatively normal. RF is elevated, CCP and LEFTY are pending. May be rheumatology component of symptoms. Etiology is therefore multifactorial, including deconditioning, poor nutrition status, arthritic joint pains that are severe, residual deficits from CVA's. - Physical therapy recommending inpatient rehab - Vitamin D supplementation (3) Weakness Status: Acute Plan: See above for management of fall. (4) Anemia Status: Chronic Plan: Chronic anemia. May be of chronic disease. Could also be part of rheumatoid arthritis. - Workup for RA is pending. (5) Penetrating atherosclerotic ulcer of aorta Status: Chronic Plan: s/p TEVAR. CXR shows endograft in stable position. - Requires good blood pressure control - Dental Scheduler on smoking cessation (6) CAD (coronary artery disease) Status: Chronic Plan: No complaint of CP and EKG's show no acute change. ACS workup negative. - Cont home metoprolol - Continue statin - Holding aspirin/plavix in anticipation of procedure (7) Diabetes mellitus, type 2 Status: Chronic Plan: Decreased PO intake recently. Will keep on SSI only, following bedside glucose. (8) Hypothyroidism Status: Chronic Plan: TSH normal. - Cont levothyroxine. (9) HTN (hypertension) Status: Chronic Plan: - Cont home metoprolol and lisinopril. - PRN clonidine (10) DEAN (obstructive sleep apnea) Status: Chronic Plan: Chronic issue. -BiPAP at night (11) Nutrition, metabolism, and development symptoms Status: Acute Plan: Fluids: PO fluids Diet: regular diet, supplement mighty milk sugar free DVT ppx: SCDs. Lovenox. dw Dr. Taylor (Otto Mendez MD R2) Problem Qualifiers (1) Left humeral fracture: Qualified Code: S42.202A - Closed fracture of proximal end of left humerus, unspecified fracture morphology, initial encounter (2) Fall: Qualified Code: W19.XXXA - Fall, initial encounter (3) Anemia: Qualified Code: D64.9 - Anemia, unspecified type (4) CAD (coronary artery disease): Qualified Code: I25.10 - Coronary artery disease involving [place] coronary artery of [place] heart without angina pectoris (5) Diabetes mellitus, type 2: Qualified Code: E11.9 - Type 2 diabetes mellitus without complication, with long-term current use of insulin Otto Mendez MD R2 Aug 10, 2016 13:48 Yasmin Taylor MD Aug 10, 2016 19:34
--- NOTE | 2016-08-11 11:38 | HHI.DS ---
Discharge Summary Admission Date Aug 07, 2016 at 4:58 pm Discharge Date: Aug 10, 2016 Admitting Diagnosis abdominal wall hematoma. Coagulopathy. Liver cirrhosis. (1) Left humeral fracture Diagnosis: Principal Plan: Left humeral surgical neck fracture that is comminuted. Revised cardiac risk index score of 3, representing 11% risk of major event. Per family, most recent stress test was before aortic stent surgery on 05/2016. Stent placement for recent aortic ulcer. He has a history of prior [place] and CVA and is a lifelong smoker. Vitamin D level is low, 25. Opting for non-surgical treatment at this time as fracture is relatively well aligned and has decent potential to heal with acceptable functionality. - Orthopedic surgery consulted, appreciate recs - non-operative management; will need PT/OT with outpatient follow up - Pain management: Percocet 7.5 Q4H scheduled, Dilaudid 1 mg IV for breakthrough - Vitamin D 2000U and calcium 1000 mg supplementation. - Inpatient rehab on discharge - Would benefit from DEXA scan as outpatient - Incentive spirometry and acapella (2) Fall Diagnosis: Principal Plan: Significant history of weakness, arthritic joint pain, history of CVA's with residual deficits. Also with recent weight loss after hospital admission. CT head and MRI brain negative. Troponin initially elevated, repeat lower, EKG' s relatively normal. RF is elevated, CCP and LEFTY are pending. May be rheumatology component of symptoms. Etiology is therefore multifactorial, including deconditioning, poor nutrition status, arthritic joint pains that are severe, residual deficits from CVA's. - Physical therapy recommending inpatient rehab - Vitamin D supplementation (3) Weakness Diagnosis: Secondary Plan: See above for management of fall. (4) Anemia Diagnosis: Secondary Plan: Chronic anemia. May be of chronic disease. Could also be part of rheumatoid arthritis. - Workup for RA is pending. (5) Penetrating atherosclerotic ulcer of aorta Diagnosis: Secondary Plan: s/p TEVAR. CXR shows endograft in stable position. 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 ACS workup negative. - Cont home metoprolol - Continue statin - Holding aspirin/plavix in anticipation of procedure (7) Diabetes mellitus, type 2 Diagnosis: Secondary Plan: Decreased PO intake recently. Will keep on SSI only, following bedside glucose. (8) Hypothyroidism Diagnosis: Secondary Plan: TSH normal. - Cont levothyroxine. (9) HTN (hypertension) Diagnosis: Secondary Plan: - Cont home metoprolol and lisinopril. - PRN clonidine (10) DEAN (obstructive sleep apnea) Diagnosis: Secondary Plan: Chronic issue. -BiPAP at night [facility] - Dr. Kendrick Brief History 71 year-old male with complicated medical history here after fall. Apparently was at home, got up to walk, and felt his legs give out. Hit his head followed by left shoulder while falling down. No dizziness. No LOC. No vision changes. No CP. Of note, patient has recent history of ESAU requiring TEVAR approximately 2 months ago. Has been on dual-antiplatelet therapy since then. Daughter reports that ever since surgery, appetite has been decreased. His PCP has started him on glucerna shakes, but she says "that's all he every wants to eat now". He has history of DM II on insulin, patient cannot state what sugars have been recently. Has history of CVA in 2011 and 2013. Every since then, has been experiencing weakness in the LEs, with several mechanical falls. On admission, found to have WBC count of 17 with potassium 6.1. Started on IV fluids and repeat potassium 5.5. Coags WNL. Lactic acid 0.8. XR humerus showed humeral neck fx on the left. CXR showed thoracic endograph in appropriate position and left lung atelactasis. Patient started on rocephin and azithro for suspected PNA. Was given morphine followed by dilaudid for pain. States he felt pain meds "did nothing". CBC/BMP: 08/10/16 1117 08/10/16 0512 Significant Findings Laboratory Tests Test 08/08/16 08/09/16 08/10/16 08/10/16 14:04 04:33 05:12 11:17 Potassium Level 5.2 MEQ/L (3.5-5.1) Chloride Level 110 MEQ/L 111 MEQ/L 112 MEQ/L (98-107) (98-107) (98-107) Blood Urea Nitrogen 27 MG/DL (7-18) 27 MG/DL (7-18) 21 MG/DL (7-18) Estimat Glomerular Filtration 68 ML/MIN (>89) 81 ML/MIN (>89) 78 ML/MIN (>89) Rate Random Glucose 161 MG/DL 129 MG/DL 119 MG/DL (74-106) (74-106) (74-106) Hemoglobin 8.6 GM/DL 8.3 GM/DL 8.4 GM/DL (13.0-17.0) (13.0-17.0) (13.0-17.0) Hematocrit 26.3 % 25.6 % 25.7 % (39.0-51.0) (39.0-51.0) (39.0-51.0) Calcium Level 8.4 MG/DL (8.5-10.1) Imaging Last Impressions Shoulder X-Ray 08/07/16 1442 Signed Impressions: Service Date/Time: Sunday, August 07, 2016 15:53 - CONCLUSION: Fracture through the surgical neck of the proximal humerus. Michael Joel MD Chest X-Ray 08/07/16 1442 Signed Impressions: Service Date/Time: Sunday, August 07, 2016 16:02 - CONCLUSION: Mild left base parenchymal opacity and stable interstitial prominence Munir Quintero MD Upper Extremity CT 08/07/16 0000 Signed Impressions: Service Date/Time: Sunday, August 07, 2016 21:56 - CONCLUSION: 1. Comminuted proximal left humeral fracture as above. Andre Hardin MD Humerus X-Ray 08/07/16 0000 Signed Impressions: Service Date/Time: Sunday, August 07, 2016 15:54 - CONCLUSION: Fracture through the surgical neck of the proximal left humerus. Michael Joel MD Head CT 08/07/16 0000 Signed Impressions: Service Date/Time: Sunday, August 07, 2016 21:52 - CONCLUSION: Normal examination for a patient of this age. No significant change has occurred. Andre Hardin MD Brain MRI 08/07/16 0000 Signed Impressions: Service Date/Time: Sunday, August 07, 2016 22:10 - CONCLUSION: 1. Remote lacunar infarct right basal ganglia. Mild white matter ischemic changes. No acute infarct. Andre Hardin MD PE at Discharge GENERAL: Lying in bed, comfortable SKIN: Area of previous sacral ulcer not examined 2/2 patient pain/discomfort. It was a stage 1 ulcer at recent visit in the clinic. Bruising over left abdomen. Abrasion over left knee and right forearm with dried blood. Dressing in place EYES: Stye over right upper eyelid. No scleral icterus. No conjunctival injection or drainage. EOMI. CARDIOVASCULAR: Regular rate and rhythm. No murmurs RESPIRATORY: Lungs clear to auscultation bilaterally. EXTREMITIES: No edema. Multiple surgical scars on right forearm and wrist. Right second digit in contracture. Difficulty extending digits. Limited mobility of upper extremities. Dorsalis pedis and posterior tibial arteries have +1 pulses. NEUROLOGICAL: Awake and alert. Grossly nonfocal. Hospital Course Admitted for fall and subsequent fracture of left humerus at the surgical neck. Based on extensive cardiac history and risk of surgery, patient and orthopedic surgeon elected for non-operative management. Patient medically stable, placed in splint, pain controlled. Discharged to rehab facility with follow up in office with Dr. Kendrick for repeat XR shoulder. Non-mechanical causes of fall ( syncope, [place], stroke) excluded by exam and laboratory evaluation. Of note, RF factor strongly positive (had been having joint symptoms for quite some time). Anti-CCP and other rheumatologic studies pending, PCP Dr. Mendez to follow up. Pt Condition on Discharge: Stable Discharge Disposition: Rehab Inpatient Discharge Instructions DIET: Follow Instructions for: As Tolerated, No Restrictions Speech Therapy-Diet Recommends: Regular Activities you can perform: Weight Bearing as Frantz Follow up Referrals: Orthopedics - 1 Week with Min Kendrick MD PCP Follow-up - 1 Week with JASKARAN MENDEZ New Medications: Hydromorphone (Hydromorphone) 2 Mg Tab 1 MG PO Q12HR PRN BREAKTHROUGH PAIN #30 Ref 0 TAB Calcium Gluconate (Calcium Gluconate) 500 Mg Tab 1000 MG PO DAILY #30 TAB Cholecalciferol (Vitamin D3) 400 Unit Tab 2000 UNITS PO DAILY #30 TAB Oxycodone-Acetaminophen (Oxycodone-Acetaminophen) 7.5-325 mg Tab 1 TAB PO Q4HR #30 TAB Continued Medications: Alprazolam (Alprazolam) 1 Mg Tab 1 MG PO Q8H PRN ANXIETY #[address] (Aspirin EC) 81 Mg Tabdr 81 MG PO DAILY Days 30 TAB Citalopram (Celexa) 20 Mg Tab 20 MG PO DAILY #30 Ref 3 TAB Clopidogrel (Plavix) 75 Mg Tab 75 MG PO DAILY #90 TAB Labetalol (Labetalol) 200 Mg Tab 200 MG PO Q12HR #60 TAB Levothyroxine (Levothyroxine) 25 Mcg Tab 25 MCG PO DAILY@06 #30 Ref 1 TAB Lisinopril (Lisinopril) 10 Mg Tab 10 MG PO DAILY #30 Ref 0 TAB Metoprolol Tartrate (Metoprolol Tartrate) 25 Mg Tab 25 MG PO BID #60 Ref 0 TAB Nitroglycerin SL (Nitrostat SL) 0.4 Mg Subl 0.4 MG SL DIRECTED 1 tablet under the tongue as needed for chest pain. Repeat every 5 minutes for a total of 3 DOSES or call 911 if NO relief. PRN CHEST PAIN #100 Ref 0 TAB.SL Pravastatin (Pravachol) 80 Mg Tab 80 MG PO DAILY #30 Ref 6 TAB Sennosides-Docusate Sodium (Senna Plus 8.6-50 mg) 1 Tab Tab 1 TAB PO BID #60 Ref 1 TAB Tiotropium Inh (Spiriva Handihaler) 18 Mcg Cap 1 PUFF INH DAILY 1 capsule = 18 mcg COPD #30 Ref 0 CAP Discontinued Medications: Hydrocodone-Acetaminophen (Lortab) 7.5-325 Mg Tab 1 TAB PO Q6H PRN PAIN #120 Ref 0 TAB Hydromorphone (Hydromorphone) 2 Mg Tab 2 MG PO DAILY PRN breakthrough pain #30 Ref 0 TAB Insulin Glargine Inj (Lantus Solostar Pen Inj) 300 Unit/3 Ml Pen 20 UNITS SQ HS Blood Sugar Management #2 Ref 0 PEN Zolpidem (Ambien) 5 Mg Tab 5 MG PO HS PRN insomnia #20 TAB Eduardo Garcia MD R1 Aug 11, 2016 11:38 am
[2016-08-11 11:52] LABS: VITAMIN B6 13.2 ng/mL (2.1-21.7)
[2016-09-27] MEDS ORDERED: ZINC40OI TOPICAL ×2 (11:58→12:00)
[2016-09-27] MEDS ORDERED: LANTINJ SQ ×2 (11:58→12:00)
[2016-09-27] MEDS ORDERED: PRAV80TA PO (12:00)
[2016-09-27] MEDS ORDERED: SPIRCAP INH (12:00)
[2016-09-27] MEDS ORDERED: LEVO25TA4 PO (12:00)
[2016-09-27] MEDS ORDERED: OXYC1TAB35 PO (12:00)
[2016-09-27] MEDS ORDERED: LISI10TA3 PO (12:00)
[2016-09-27] MEDS ORDERED: METO25TA3 PO (12:00)
[2016-09-27] MEDS ORDERED: CELE20TA PO (12:00)
[2016-09-27] MEDS ORDERED: SENN1TAB PO (12:00)
[2016-09-27] MEDS ORDERED: PLAV75TA29 PO (12:00)
[2016-09-27] MEDS ORDERED: CALG500 PO (12:00)
[2016-09-27] MEDS ORDERED: VITD400 PO (12:00)
[2016-09-27] MEDS ORDERED: NITR0.4S SL (12:05)
[2016-09-27] MEDS ORDERED: ASPI81TA11 PO (12:05)
[2016-10-04] MEDS ORDERED: METO25TA3 PO (16:41)
[2016-10-08] MEDS ORDERED: TIZA4TAB PO (14:16)
[2016-10-09] MEDS ORDERED: OXYC1TAB35 PO (16:44)
[2016-10-11] MEDS ORDERED: OXYC1TAB35 PO (15:48)
[2016-10-15] MEDS ORDERED: BLOOD GLUCOSE T1 TES (10:24)
== END 2016-08-10 14:37 | DRG 563 ==
LOC: NEPD 14:03 → NEDA 16:58 → N07B 20:36
PROVIDERS: ADMIT Family Medicine; ATTEND Family Medicine
DX: S42.212A Unspecified displaced fracture of surgical neck of left humerus, initial encounter for closed fracture (principal); L89.151 Pressure ulcer of sacral region, stage 1; E87.5 Hyperkalemia; I69.398 Other sequelae of cerebral infarction; J44.9 Chronic obstructive pulmonary disease, unspecified; I10 Essential (primary) hypertension; D64.9 Anemia, unspecified; E11.9 Type 2 diabetes mellitus without complications; Z79.4 Long term (current) use of insulin; R53.1 Weakness; S30.1XXA Contusion of abdominal wall, initial encounter; S80.212A Abrasion, left knee, initial encounter; S50.811A Abrasion of right forearm, initial encounter; W05.0XXA Fall from non-moving wheelchair, initial encounter; Y92.009 Unspecified place in unspecified non-institutional (private) residence as the place of occurrence of the external cause; E03.9 Hypothyroidism, unspecified; I25.10 Atherosclerotic heart disease of native coronary artery without angina pectoris; I25.2 Old myocardial infarction; Z79.02 Long term (current) use of antithrombotics/antiplatelets; Z79.82 Long term (current) use of aspirin; Z95.828 Presence of other vascular implants and grafts; E78.5 Hyperlipidemia, unspecified; G47.33 Obstructive sleep apnea (adult) (pediatric); M54.5 Low back pain; F41.9 Anxiety disorder, unspecified; F17.210 Nicotine dependence, cigarettes, uncomplicated; H00.011 Hordeolum externum right upper eyelid; R63.4 Abnormal weight loss; Z68.24 Body mass index [BMI] 24.0-24.9, adult; M19.90 Unspecified osteoarthritis, unspecified site
CPT/HCPCS: 70450; 70551; 71010; 73030; 73060; 73200; 80048; 80053; 80307; 81001; 82306; 82310; 82550; 82607; 82728; 82948; 83540; 83550; 83605; 83735; 83880; 84100; 84132; 84145; 84207; 84425; 84443; 84484; 85014; 85018; 85025; 85610; 85652; 85730; 86038; 86140; 86200; 86235; 86430; 87040; 87804; 93005; 94667; 96374; 96375; 96376; J0456; J0610; J0696; J1170; J1650; J1815; J2270; J2405; J7030; J7050